=== PATIENT | male | born 1970 | race Caucasian/White ===

== ENCOUNTER → 2019-05-31 | Outpatient (CLI) | payer BC | LOC: COL.CARD 06:33 | DX: R07.89 Other chest pain (principal) ==

== ENCOUNTER → 2020-03-21 | Outpatient (CLI) | payer BC | LOC: COL.RAD 09:48 | DX: K76.0 Fatty (change of) liver, not elsewhere classified (principal); R05 Cough ==

== ENCOUNTER 2021-05-11 21:45 | Inpatient (IN) | payer BC ==
[~2021-05-11] VITALS: Ht 175.3 cm; Wt 102.7 kg
[2021-05-11 22:43] LABS: BASO % 0.2 % (0.0-2.0); GRAN % 81.8 % (42.2-75.2); HEMATOCRIT 43.9 % (42.0-52.0); HEMOGLOBIN 15.3 g/dl (13.5-18.0); LYMPH # 0.6 K/mm3 (1.2-3.4); LYMPH % 12.8 % (20.0-51.0); MEAN CELL VOLUME 91 fl (80.0-100.0); MEAN CORPUSCULAR HEMOGLOBIN 32 pg (27-31); MEAN CORPUSCULAR HGB CONC 35 g/dl (33.0-37.0); MEAN PLATELET VOLUME 9.9 fl (7.4-10.4); MONO # 0.2 K/mm3 (0.1-0.6); PLATELET COUNT 163 K/mm3 (130-400); RED BLOOD COUNT 4.82 M/mm3 (4.20-5.60); REDCELL DISTRIBUTION WIDTH-CV 12.6 % (11.5-14.5)
[2021-05-11 23:03] LABS: ALBUMIN 3.6 gm/dL (3.5-5.0); BILIRUBIN,TOTAL 0.9 mg/dL (0.2-1.2); CREATININE, serum 0.89 mg/dL (0.72-1.25); POTASSIUM 3.4 mmol/L (3.5-4.5); TOTAL PROTEIN 6.7 gm/dL (6.2-8.1)
[2021-05-11 23:08] LABS: TROPONIN-I 0.019 ng/mL (0.00-0.033)
[2021-05-12] VITALS (7 sets, daily range): BP systolic 95–124; BP diastolic 56–75; PULSE 72–91; TEMP 98–100.2
[2021-05-12 00:27] LABS: INR 1.3 (0.8-3.0); PROTHROMBIN TIME 14.1 SECONDS (9.7-12.8)
[2021-05-12 00:40] LABS: C-REACTIVE PROTEIN 9.24 mg/dL (0.00-0.50); MAGNESIUM 1.9 mg/dL (1.6-2.6)
--- NOTE | 2021-05-12 04:09 | NUR ---
Patient arrived medical floor via wheelchair from ER around 02:10 am. Patient A/Ox4. Patient currently on oxygen 3L via NC. Patient denies SOB or dyspnea while at rest. Denies chest pain, headache, or N/V. Tele box in place. Oriented patient to the room. Potassium replaced per JUN. Patient independent in the room. Call light in reach. Will continue to monitor.
[2021-05-12 07:48] LABS: ALBUMIN 3.2 gm/dL (3.5-5.0); BILIRUBIN,TOTAL 0.6 mg/dL (0.2-1.2); CALCIUM 8.1 mg/dL (8.4-10.2); CREATININE, serum 1.01 mg/dL (0.72-1.25); POTASSIUM 4.3 mmol/L (3.5-4.5); TOTAL PROTEIN 6.1 gm/dL (6.2-8.1)
[2021-05-12 08:28] LABS: BASO % 0.2 % (0.0-2.0); GRAN # 3.7 K/mm3 (1.4-6.5); GRAN % 77.1 % (42.2-75.2); HEMATOCRIT 42.4 % (42.0-52.0); HEMOGLOBIN 14.6 g/dl (13.5-18.0); LYMPH # 0.8 K/mm3 (1.2-3.4); LYMPH % 17.5 % (20.0-51.0); MEAN CELL VOLUME 93 fl (80.0-100.0); MEAN CORPUSCULAR HEMOGLOBIN 32 pg (27-31); MEAN CORPUSCULAR HGB CONC 34 g/dl (33.0-37.0); MEAN PLATELET VOLUME 10.5 fl (7.4-10.4); MONO # 0.2 K/mm3 (0.1-0.6); MONO % 4.8 % (1.7-9.3); PLATELET COUNT 177 K/mm3 (130-400); RED BLOOD COUNT 4.56 M/mm3 (4.20-5.60)
--- NOTE | 2021-05-12 10:56 | NUR ---
Bill Distributor contacted patient by phone to discuss discharge planning as he is currently in covid isolation. Patient lives in [place] with his , Eun (ph#[phone]) and three of their children. Patient states he also has three adult children who no longer live in the home. Patient states his primary care physician, Dr. Emery retired recently so they are in the process of finding a new PCP. Patient obtains medications from [facility] with no diffficulties. Patient does not use any DME, but is currently requiring oxygen. SW will continue to monitor. Patient is independent with ADLS and is employed at [employer]. Patient does not have Advance Directives and his , Eun is legal next of kin. Patient plans to return home upon discharge. Discharge Plan: Home, possible home oxygen
[2021-05-12 13:32] LABS: COLLECTION METHOD CLEAN CATCH
[2021-05-12 13:44] LABS: MUCOUS Present (NOT PRESENT); PH 5 (5-8); SQUAMOUS EPITHELIAL 0-2 /hpf (0-10); URINE APPEARANCE Hazy (CLEAR/HAZY); URINE BACTERIA None Seen /hpf (NONE SEEN); URINE BILIRUBIN Negative (NEGATIVE); URINE BLOOD Negative (NEGATIVE); URINE COLOR Yellow (YELLOW); URINE GLUCOSE Negative (NEGATIVE); URINE KETONE Trace (NEGATIVE); URINE LEUKOCYTE ESTERASE Negative (NEGATIVE); URINE NITRATE Negative (NEGATIVE); URINE PROTEIN(semi-quant) 1+ (NEGATIVE); URINE RBC 0-2 /hpf (0-2); URINE UROBILINOGEN >=4.0 (NEGATIVE)
--- NOTE | 2021-05-12 22:00 | NUR ---
Patient resting in bed upon enter the room. Patient currently on 15L oxygen via high flow NC. Patient reports SOB with activities. Patient denies any chest pain or discomfort. Temp 100.2F tonight. PRN Tylenol given. Call light in reach. Will continue to monitor.
[2021-05-13 04:06] VITALS: BP 119/71; PULSE 70; TEMP 97.7
[2021-05-13 06:21] LABS: BASO % 0.1 % (0.0-2.0); GRAN % 85.4 % (42.2-75.2); HEMATOCRIT 42.6 % (42.0-52.0); HEMOGLOBIN 14.4 g/dl (13.5-18.0); LYMPH # 0.7 K/mm3 (1.2-3.4); LYMPH % 9.2 % (20.0-51.0); MEAN CELL VOLUME 93 fl (80.0-100.0); MEAN CORPUSCULAR HEMOGLOBIN 32 pg (27-31); MEAN CORPUSCULAR HGB CONC 34 g/dl (33.0-37.0); MEAN PLATELET VOLUME 10.6 fl (7.4-10.4); MONO # 0.3 K/mm3 (0.1-0.6); MONO % 4.7 % (1.7-9.3); PLATELET COUNT 209 K/mm3 (130-400); RED BLOOD COUNT 4.56 M/mm3 (4.20-5.60); REDCELL DISTRIBUTION WIDTH-CV 12.7 % (11.5-14.5)
[2021-05-13 06:42] LABS: BILIRUBIN,TOTAL 0.6 mg/dL (0.2-1.2); CREATININE, serum 0.79 mg/dL (0.72-1.25); POTASSIUM 3.9 mmol/L (3.5-4.5); TOTAL PROTEIN 6.1 gm/dL (6.2-8.1)
[2021-05-13 08:30] VITALS: BP 112/63; PULSE 73; TEMP 97.7
--- NOTE | 2021-05-13 09:30 | NUR ---
PT ASSESSED. NO COMPLAINSTS OF PAIN OR DYSPNEA. NO SIGNS OR SYMPTOMS OF DISTRESS. CALL LIGHT WITHIN REACH
[2021-05-13 11:54] VITALS: BP 115/59; PULSE 66; TEMP 98.1
[2021-05-13 16:03] VITALS: BP 110/62; PULSE 69; TEMP 98
[2021-05-13 20:00] VITALS: BP 132/66; PULSE 70; TEMP 98.5
--- NOTE | 2021-05-13 21:20 | NUR ---
Patient sitting up in bed and watching TV upon enter the room. Patient denies chest pain and SOB at this time. Patient reports SOB with activities. Patient currently on 15L oxygen via high flow NC. Breathing even and unlabored. No apparent respiratory distress noted. Call light in reach. Will continue to monitor.
[2021-05-13 23:55] VITALS: BP 110/64; PULSE 70; TEMP 97.9
[2021-05-14 03:57] VITALS: BP 104/50; PULSE 66
--- NOTE | 2021-05-14 05:38 | NUR ---
Patient remains on oxygen 15L via high flow NC over the night. VS stable. No acute distress noted.
[2021-05-14 07:18] LABS: BASO % 0.1 % (0.0-2.0); GRAN # 7.2 K/mm3 (1.4-6.5); GRAN % 86.5 % (42.2-75.2); HEMATOCRIT 43.4 % (42.0-52.0); HEMOGLOBIN 14.6 g/dl (13.5-18.0); LYMPH # 0.6 K/mm3 (1.2-3.4); LYMPH % 7.7 % (20.0-51.0); MEAN CELL VOLUME 93 fl (80.0-100.0); MEAN CORPUSCULAR HEMOGLOBIN 31 pg (27-31); MEAN CORPUSCULAR HGB CONC 34 g/dl (33.0-37.0); MEAN PLATELET VOLUME 10.7 fl (7.4-10.4); MONO # 0.4 K/mm3 (0.1-0.6); MONO % 5.3 % (1.7-9.3); PLATELET COUNT 257 K/mm3 (130-400); RED BLOOD COUNT 4.65 M/mm3 (4.20-5.60); REDCELL DISTRIBUTION WIDTH-CV 12.9 % (11.5-14.5)
[2021-05-14 07:28] LABS: ALBUMIN 3.1 gm/dL (3.5-5.0); BILIRUBIN,TOTAL 0.6 mg/dL (0.2-1.2); C-REACTIVE PROTEIN 6.56 mg/dL (0.00-0.50); CALCIUM 8.4 mg/dL (8.4-10.2); CREATININE, serum 0.74 mg/dL (0.72-1.25); POTASSIUM 3.9 mmol/L (3.5-4.5); TOTAL PROTEIN 6.1 gm/dL (6.2-8.1)
[2021-05-14 08:20] VITALS: BP 94/55; PULSE 67; TEMP 98
--- NOTE | 2021-05-14 09:37 | NUR ---
Assessment completed, alert/oriented, vital signs stable, patient stated he feels worse today, oxygen demand increased and he is now on Airvo, lungs are diminished and coarse in the bases, encourged deep breathig exercises and positon changes/ mobility, heart RRR/distal pulses are palapble, he is sitting at the edge of bed, morning meds given and he is eating breakfast, will continue to monitor and he denies needs at this time
[2021-05-14 12:02] VITALS: BP 98/59; PULSE 62; TEMP 98.3
[2021-05-14 17:15] VITALS: BP 118/73; PULSE 67; TEMP 98.1
[2021-05-14 20:01] VITALS: BP 116/69; PULSE 63; TEMP 98
--- NOTE | 2021-05-14 22:06 | NUR ---
Patient is sitted in bed, alert and oriented x 4, reports he does not want to be in bed because of the SOB. Airvo 45L 90%FiO2. Telemetry in place, NSR. Assessment completed. No further needs at this time. Call light within reach.
[2021-05-14 23:49] VITALS: BP 110/56; PULSE 77; TEMP 97.8
[2021-05-15 04:23] VITALS: BP 113/65; PULSE 64; TEMP 98
--- NOTE | 2021-05-15 05:55 | NUR ---
Patient has been stable along the night. Continues with airvo at 45L 90 %. No fever, reports some diarrhea. Repor will be given to day RN.
[2021-05-15 06:22] LABS: HEMATOCRIT 42.4 % (42.0-52.0); HEMOGLOBIN 14.2 g/dl (13.5-18.0); MEAN CELL VOLUME 95 fl (80.0-100.0); MEAN CORPUSCULAR HEMOGLOBIN 32 pg (27-31); MEAN CORPUSCULAR HGB CONC 34 g/dl (33.0-37.0); MEAN PLATELET VOLUME 10.3 fl (7.4-10.4); PLATELET COUNT 289 K/mm3 (130-400); RED BLOOD COUNT 4.45 M/mm3 (4.20-5.60); REDCELL DISTRIBUTION WIDTH-CV 12.8 % (11.5-14.5)
[2021-05-15 06:43] LABS: BILIRUBIN,TOTAL 0.5 mg/dL (0.2-1.2); CALCIUM 8.3 mg/dL (8.4-10.2); CREATININE, serum 0.73 mg/dL (0.72-1.25); POTASSIUM 3.8 mmol/L (3.5-4.5)
[2021-05-15 07:35] LABS: BAND 3 % (0-10); EOSINOPHIL 1 % (0-4); LYMPHOCYTE 6 % (20.0-51.0); NEUTROPHILS 85 % (42.0-75.2); PLATELET ESTIMATE NORMAL (NORMAL)
[2021-05-15 08:30] VITALS: BP 111/68; PULSE 72; TEMP 97.6
[2021-05-15 12:16] VITALS: BP 116/66; PULSE 58; TEMP 98.1
--- NOTE | 2021-05-15 13:00 | NUR ---
The patient remains on high flow oxygen at 50 liters. SW to continue to monitor.
[2021-05-15 15:20] VITALS: BP 128/65; PULSE 73; TEMP 98.9
[2021-05-15 20:27] VITALS: BP 111/60; PULSE 66; TEMP 98.1
--- NOTE | 2021-05-15 21:30 | NUR ---
Patient is resting in bed, alert and oriented x 4, states feeling the same as yesterday. On airvo 50L 90%FiO2. Assessment completed. No other needs at this time. Call light within reach.
--- NOTE | 2021-05-15 22:29 | NUR ---
Pt reports cough but not so bad to required cough medication. Still with diarrhea.
[2021-05-15 23:56] VITALS: BP 115/51; PULSE 61; TEMP 98.4
[2021-05-16 04:11] VITALS: BP 105/56; PULSE 60; TEMP 98.1
[2021-05-16 05:34] LABS: HEMOGLOBIN 14.7 g/dl (13.5-18.0); MEAN CELL VOLUME 94 fl (80.0-100.0); MEAN CORPUSCULAR HEMOGLOBIN 31 pg (27-31); MEAN CORPUSCULAR HGB CONC 33 g/dl (33.0-37.0); PLATELET COUNT 318 K/mm3 (130-400); REDCELL DISTRIBUTION WIDTH-CV 12.8 % (11.5-14.5)
[2021-05-16 05:54] LABS: BILIRUBIN,TOTAL 0.6 mg/dL (0.2-1.2); CALCIUM 8.4 mg/dL (8.4-10.2); CREATININE, serum 0.74 mg/dL (0.72-1.25); POTASSIUM 4.2 mmol/L (3.5-4.5); TOTAL PROTEIN 5.7 gm/dL (6.2-8.1)
--- NOTE | 2021-05-16 06:13 | NUR ---
Patient has been stable along the night. He continues with airvo at 50L 90%. Still with cough and diarrhea. Report will be given to day RN.
[2021-05-16 06:52] LABS: BAND 1 % (0-10); LYMPHOCYTE 10 % (20.0-51.0); METAMYELOCYTE 1 % (0-0); NEUTROPHILS 84 % (42.0-75.2); PLATELET ESTIMATE NORMAL (NORMAL)
[2021-05-16 08:46] VITALS: BP 104/64; PULSE 70; TEMP 99
--- NOTE | 2021-05-16 10:20 | NUR ---
The patient remains on high flow oxygen at 50 liters. SW contacted the patient to follow up. The patient reports that he is doing alright. He still plans on returning home with his upon discharge. SW to continue to monitor.
[2021-05-16 12:29] VITALS: BP 102/67; PULSE 65; TEMP 97.6
[2021-05-16 16:14] VITALS: BP 104/71; PULSE 67; TEMP 98.4
--- NOTE | 2021-05-16 20:30 | NUR ---
Patient is sitting in bed, alert and oriented x 4, VSS. On airvo 55L 90%. Continues with cough and diarrhea. States he feels no improvement or deterioration. Day shift reported he was struggling with O2 levels when having meals. SOB with activity. Assessment completed. No further needs at this time. Call light within reach.
[2021-05-16 20:36] VITALS: BP 111/67; PULSE 66; TEMP 97.9
[2021-05-17 00:38] VITALS: BP 102/50; PULSE 53; TEMP 98
[2021-05-17 05:00] VITALS: BP 101/62; PULSE 66; TEMP 98.6
--- NOTE | 2021-05-17 06:19 | NUR ---
Pt has had a calm night. Continues with airvo at 55L and 90%. Report will be given to day RN.
[2021-05-17 06:54] LABS: HEMATOCRIT 46.2 % (42.0-52.0); HEMOGLOBIN 15.6 g/dl (13.5-18.0); MEAN CELL VOLUME 94 fl (80.0-100.0); MEAN CORPUSCULAR HEMOGLOBIN 32 pg (27-31); MEAN CORPUSCULAR HGB CONC 34 g/dl (33.0-37.0); MEAN PLATELET VOLUME 10.4 fl (7.4-10.4); PLATELET COUNT 335 K/mm3 (130-400); RED BLOOD COUNT 4.92 M/mm3 (4.20-5.60); REDCELL DISTRIBUTION WIDTH-CV 12.8 % (11.5-14.5)
[2021-05-17 07:29] LABS: ALBUMIN 3.1 gm/dL (3.5-5.0); CALCIUM 8.4 mg/dL (8.4-10.2); CREATININE, serum 0.81 mg/dL (0.72-1.25); MAGNESIUM 2.2 mg/dL (1.6-2.6); PHOSPHOROUS 4.2 mg/dL (2.3-4.7); POTASSIUM 3.9 mmol/L (3.5-4.5)
[2021-05-17 08:01] LABS: LYMPHOCYTE 7 % (20.0-51.0); NEUTROPHILS 92 % (42.0-75.2); PLATELET ESTIMATE NORMAL (NORMAL)
[2021-05-17 09:00] VITALS: BP 104/66; PULSE 61; TEMP 97.6
--- NOTE | 2021-05-17 10:56 | NUR ---
PT SITTING ON SIDE OF BED EATING BREAKFAST. PT INDPENDENT IN ROOM. PT REQUIRING 60L AIRVO PNC. NO OTHER NEEDS AT THIS TIME.
[2021-05-17 11:29] VITALS: BP 98/61; PULSE 59; TEMP 98.5
--- NOTE | 2021-05-17 12:29 | NUR ---
Correct time for PICC placement is 1052 not 1152 as recorded.
[2021-05-17 17:12] VITALS: BP 119/69; PULSE 59; TEMP 98.7
[2021-05-17 21:53] VITALS: BP 112/64; PULSE 80; TEMP 98.1
[2021-05-18] VITALS (311 sets, daily range): BP systolic 103–124; BP diastolic 53–79; PULSE 60–74; TEMP 97.8–98.5; O2SAT 79–98
--- NOTE | 2021-05-18 05:56 | NUR ---
ASSESSMENT COMPLETE FOR THIS SHIFT. PT ASLEEP IN BED. PT COMPLAINED OF A HEADACHE ABOUT 2300HRS. PT GIVEN TYLENOL FOR PAIN. HEADACHE RESOLVED. PT DENIES PALPITATIONS, SOB, N,V,D OR DIZZINESS. PT EXPRESSED NO OTHER NEEDS AT THIS TIME. CALL LIGHT WITHIN REACH.
[2021-05-18 06:13] LABS: HEMATOCRIT 47.9 % (42.0-52.0); HEMOGLOBIN 15.9 g/dl (13.5-18.0); MEAN CELL VOLUME 95 fl (80.0-100.0); MEAN CORPUSCULAR HEMOGLOBIN 32 pg (27-31); MEAN CORPUSCULAR HGB CONC 33 g/dl (33.0-37.0); MEAN PLATELET VOLUME 10.4 fl (7.4-10.4); PLATELET COUNT 294 K/mm3 (130-400); RED BLOOD COUNT 5.05 M/mm3 (4.20-5.60); REDCELL DISTRIBUTION WIDTH-CV 12.9 % (11.5-14.5)
[2021-05-18 06:36] LABS: ALBUMIN 3.1 gm/dL (3.5-5.0); CALCIUM 8.4 mg/dL (8.4-10.2); CREATININE, serum 0.78 mg/dL (0.72-1.25); MAGNESIUM 2.3 mg/dL (1.6-2.6)
[2021-05-18 07:33] LABS: LYMPHOCYTE 8 % (20.0-51.0); NEUTROPHILS 86 % (42.0-75.2); NUCLEATED RED BLOOD CELL 2 (0-6); PLATELET ESTIMATE NORMAL (NORMAL)
--- NOTE | 2021-05-18 08:00 | NUR ---
Shift assessment complete. Pt sitting up in bed, airvo in place at 60 L 95% O2. Pt reports coughing fits when up to restroom causing increased SOA, resolve at rest. Breathing appears mildly labored at this time. Lung sounds diminished all byrd. Heart RRR. A&Ox4. Pt reports difficulty eating due to SOA. RT at bedside and switched pt to BIPAP at 75%. Encourage pt to use BSC and urinal vs. up to restroom. Pt denies needs at this time. Call light in reach.
--- NOTE | 2021-05-18 10:52 | NUR ---
Report called to ICU nurse Naomi. RODRIGUEZ at bedside drawing ABG at this time.
[2021-05-18 11:01] LABS: ARTERIAL BLD GAS O2 SATURATION 94.7 % (92-100); ARTERIAL BLD GAS TCO2 CT 19.8; ARTERIAL BLOOD GAS BASE EXCESS -3.2 (-2-2); ARTERIAL BLOOD GAS HCO3 18.9 meq/L (22-26); ARTERIAL BLOOD GAS PCO2 27.8 mmHg (35-45); ARTERIAL BLOOD GAS PO2 70.8 mmHg (80-100); ARTERIAL BLOOD GAS pH 7.45 (7.35-7.45)
--- NOTE | 2021-05-18 11:55 | NUR ---
Pt taken down to CT and then to ICU bed 1 following by this RN and RT. Assisted JOHANA Morelos in settling pt into room. All belongings with pt.
--- NOTE | 2021-05-18 19:15 | NUR ---
Received report from JOHANA Morelos.
--- NOTE | 2021-05-18 21:00 | NUR ---
Patient resting quietly in bed. Continues to wear CPAP at 75% FiO2, tolerating well. All vitals within normal limits. Denies any pain or discomfort. Patient assited with use of urinal and sips of water. No fluids or medications infusing at this time.
[2021-05-19] VITALS (690 sets, daily range): BP systolic 104–127; BP diastolic 64–82; PULSE 64–85; TEMP 97.2–98.2; O2SAT 62–99
[2021-05-19 04:56] LABS: HEMATOCRIT 50.9 % (42.0-52.0); MEAN CELL VOLUME 94 fl (80.0-100.0); MEAN CORPUSCULAR HEMOGLOBIN 31 pg (27-31); MEAN CORPUSCULAR HGB CONC 33 g/dl (33.0-37.0); PLATELET COUNT 299 K/mm3 (130-400); RED BLOOD COUNT 5.43 M/mm3 (4.20-5.60); REDCELL DISTRIBUTION WIDTH-CV 13.2 % (11.5-14.5)
[2021-05-19 05:22] LABS: ARTERIAL BLD GAS O2 SATURATION 89.6 % (92-100); ARTERIAL BLD GAS TCO2 CT 20.2; ARTERIAL BLOOD GAS BASE EXCESS -3.2 (-2-2); ARTERIAL BLOOD GAS HCO3 19.3 meq/L (22-26); ARTERIAL BLOOD GAS PCO2 29.4 mmHg (35-45); ARTERIAL BLOOD GAS PO2 56.6 mmHg (80-100); ARTERIAL BLOOD GAS pH 7.44 (7.35-7.45)
[2021-05-19 05:37] LABS: ALBUMIN 3.3 gm/dL (3.5-5.0); CALCIUM 8.9 mg/dL (8.4-10.2); CREATININE, serum 0.74 mg/dL (0.72-1.25); MAGNESIUM 2.4 mg/dL (1.6-2.6); PHOSPHOROUS 4.8 mg/dL (2.3-4.7)
[2021-05-19 06:10] LABS: BAND 3 % (0-10); LYMPHOCYTE 8 % (20.0-51.0); METAMYELOCYTE 1 % (0-0); NEUTROPHILS 85 % (42.0-75.2)
--- NOTE | 2021-05-19 07:00 | NUR ---
RECEIVED REPORT FROM JOHANA KOTHARI. PT SLEEPING ON CPAP OF 75%. VSS. CALL LIGHT AND URINAL WITHIN REACH.
--- NOTE | 2021-05-19 19:05 | NUR ---
Received report from JOHANA Perez.
--- NOTE | 2021-05-19 20:00 | NUR ---
Patient resting quietly in bed. Wearing Airvo at 60L 90% at this time with saturations mid to high 80s. Patient is agreeable to switching over to CPAP. Sats immediately improve to low-mid 90s. All other vitals within normal limits. Patient denies any pain or discomfort.
[2021-05-20] VITALS (439 sets, daily range): BP systolic 92–134; BP diastolic 49–85; PULSE 63–86; TEMP 97.6–98.6; O2SAT 60–99
[2021-05-20 05:53] LABS: ARTERIAL BLD GAS O2 SATURATION 92.8 % (92-100); ARTERIAL BLD GAS TCO2 CT 20.8; ARTERIAL BLOOD GAS BASE EXCESS -2.2 (-2-2); ARTERIAL BLOOD GAS HCO3 19.9 meq/L (22-26); ARTERIAL BLOOD GAS PCO2 28.6 mmHg (35-45); ARTERIAL BLOOD GAS PO2 64.4 mmHg (80-100); ARTERIAL BLOOD GAS pH 7.46 (7.35-7.45)
[2021-05-20 05:57] LABS: HEMATOCRIT 50.2 % (42.0-52.0); MEAN CELL VOLUME 93 fl (80.0-100.0); MEAN CORPUSCULAR HEMOGLOBIN 32 pg (27-31); MEAN CORPUSCULAR HGB CONC 34 g/dl (33.0-37.0); MEAN PLATELET VOLUME 10.1 fl (7.4-10.4); PLATELET COUNT 258 K/mm3 (130-400)
[2021-05-20 06:21] LABS: BAND 3 % (0-10); LYMPHOCYTE 6 % (20.0-51.0); METAMYELOCYTE 1 % (0-0); NEUTROPHILS 86 % (42.0-75.2); PLATELET ESTIMATE NORMAL (NORMAL)
[2021-05-20 06:55] LABS: ALBUMIN 3.2 gm/dL (3.5-5.0); CALCIUM 8.4 mg/dL (8.4-10.2); CREATININE, serum 0.79 mg/dL (0.72-1.25); MAGNESIUM 2.5 mg/dL (1.6-2.6); PHOSPHOROUS 4.1 mg/dL (2.3-4.7)
--- NOTE | 2021-05-20 07:00 | NUR ---
RECEIVED REPORT FROM JOHANA KOTHARI. PT SLEEPING ON CPAP MASK 75%. VSS. CALL LIGHT AND URINAL WITHIN REACH.
--- NOTE | 2021-05-20 07:37 | NUR ---
Report given to JOHANA Perez.
--- NOTE | 2021-05-20 18:00 | NUR ---
REPORT CALLED TO FRANCISCO RN ON MEDICAL. PT TO TRANSFER TO [facility] VIA ON 15L OM. ALL PERSONAL BELONGINGS SENT WITH PT. DINNER TRAY ALSO SENT WITH PT.
--- NOTE | 2021-05-20 18:20 | NUR ---
PT ADMITTED TO UNIT AT THIS TIME. ORIENTED TO ROOM. WILL PASS ALONG REPORT TO ONCOMING RN.
--- NOTE | 2021-05-20 21:00 | NUR ---
Initial shift assessment done- denies pain, states SOB with any exertion, on airvo now 50L, 85% sats 90-91%, will go back on Bipap for the night. Alert,oriented, did give some crackers as a snack- no other requests, PICC to GONZÁLEZ- flushes without issues.
[2021-05-21] VITALS (317 sets, daily range): BP systolic 97–126; BP diastolic 43–77; PULSE 60–75; TEMP 97.6–98.5; O2SAT 83–100
[2021-05-21 05:38] LABS: ARTERIAL BLD GAS O2 SATURATION 90.6 % (92-100); ARTERIAL BLD GAS TCO2 CT 22.5; ARTERIAL BLOOD GAS BASE EXCESS -0.9 (-2-2); ARTERIAL BLOOD GAS HCO3 21.6 meq/L (22-26); ARTERIAL BLOOD GAS PCO2 30.7 mmHg (35-45); ARTERIAL BLOOD GAS PO2 57.4 mmHg (80-100); ARTERIAL BLOOD GAS pH 7.47 (7.35-7.45)
--- NOTE | 2021-05-21 06:07 | NUR ---
Has been sleeping well tonight-- on the Bipap all night 75% ,, o2 sats 93%. No requests.
--- NOTE | 2021-05-21 08:00 | NUR ---
ASSESSED THE PATIENT WHO WAS ON CPAP AT THE TIME. O2 SATURATIONS WERE AT 84% AND JUMPING TO 86% AT TIMES. CONTACTED RT WHO ADJUSTED HIM TO BIPAP WITH SETTINGS OF 18/15 AND 80%. THE PATIENT HAS BEEN UNABLE TO TAKE HIS MASK OFF TO EAT.
[2021-05-21 08:35] LABS: CALCIUM 8.2 mg/dL (8.4-10.2); CREATININE, serum 0.77 mg/dL (0.72-1.25); MAGNESIUM 2.4 mg/dL (1.6-2.6); PHOSPHOROUS 3.7 mg/dL (2.3-4.7); POTASSIUM 3.9 mmol/L (3.5-4.5)
--- NOTE | 2021-05-21 09:32 | NUR ---
PLACED PT IN BIPAP MODE 80% SPO2 91%
--- NOTE | 2021-05-21 11:25 | NUR ---
PROVIDER VISITED WITH THE PATIENT, AND THEY HAVE DECIDED TO TRANSFER HIM BACK DOWN TO THE ICU AT THIS TIME. NO FURTHER CONCERNS.
[2021-05-21 12:02] LABS: HEMATOCRIT 48.5 % (42.0-52.0); HEMOGLOBIN 16.3 g/dl (13.5-18.0); MEAN CELL VOLUME 96 fl (80.0-100.0); MEAN CORPUSCULAR HEMOGLOBIN 32 pg (27-31); MEAN CORPUSCULAR HGB CONC 34 g/dl (33.0-37.0); MEAN PLATELET VOLUME 10.4 fl (7.4-10.4); PLATELET COUNT 206 K/mm3 (130-400); RED BLOOD COUNT 5.05 M/mm3 (4.20-5.60); REDCELL DISTRIBUTION WIDTH-CV 13.3 % (11.5-14.5)
--- NOTE | 2021-05-21 12:27 | NUR ---
'S NUMBER IS [phone]
[2021-05-21 12:30] LABS: BAND 5 % (0-10); EOSINOPHIL 1 % (0-4); LYMPHOCYTE 1 % (20.0-51.0); NEUTROPHILS 91 % (42.0-75.2); PLATELET ESTIMATE NORMAL (NORMAL)
[2021-05-21 12:59] LABS: ARTERIAL BLD GAS O2 SATURATION 94.2 % (92-100); ARTERIAL BLD GAS TCO2 CT 20.6; ARTERIAL BLOOD GAS BASE EXCESS -1.1 (-2-2); ARTERIAL BLOOD GAS HCO3 19.8 meq/L (22-26); ARTERIAL BLOOD GAS PCO2 25.6 mmHg (35-45); ARTERIAL BLOOD GAS PO2 62.9 mmHg (80-100); ARTERIAL BLOOD GAS pH 7.51 (7.35-7.45)
--- NOTE | 2021-05-21 13:00 | NUR ---
UPON ASSESSMENT OF THIS PATIENT, HE IS 94-95% ON BIPAP AT 80%. AT THIS TIME THE PATIENT IS DISPLAYING NECK PAIN, UPON PALPATION OF THIS AREA THERE IS SLIGHT CREPITOUS. THE PATIEN'T DOES STATE THAT IT HURTS. TRANSFER TO THE ICU WILL HAPPEN AT THIS TIME.
--- NOTE | 2021-05-21 14:00 | NUR ---
Pt arrived to ICU 1. Pt moved from medical to ICU bed without difficulty. BiPAP in place at 80% FiO2. FiO2 titrated to 100% per MD Kelvin. Small amount of subcutaneous emphysemia noted in right upper chest and neck. Pt's Eun called on speaker using pt's cell phone - update provided - Eun wishes for an update from a provider - MD Sofi made aware. RT aware of ABG scheduled for 1700.
--- NOTE | 2021-05-21 15:30 | NUR ---
Respiratory Therapy notified of 1700 ABG
[2021-05-21 19:09] LABS: ARTERIAL BLD GAS O2 SATURATION 97.8 % (92-100); ARTERIAL BLD GAS TCO2 CT 18.6; ARTERIAL BLOOD GAS BASE EXCESS -1.2 (-2-2); ARTERIAL BLOOD GAS PCO2 20.6 mmHg (35-45); ARTERIAL BLOOD GAS PO2 93.3 mmHg (80-100); ARTERIAL BLOOD GAS pH 7.56 (7.35-7.45)
--- NOTE | 2021-05-21 20:00 | NUR ---
PT ASSESSMENT COMPLETE. PT SITTING UP IN BED, ON BIPAP. TOLERATING WELL. DENIES SOA OR DISTRESS. RR IS ELEVATED IN THE 30'S, PULSE OX 99%. BLOOD GASES SHOWN TO DR. NASH, NO ORDERS OR CHANGE TO POC AT THIS TIME. NOTED TRAPPED AIR OR SIMILAR SWELLING TO RIGHT SIDE NECK. PT REPORTS SEEMS BETTER THAN PREVIOUSLY TODAY. WILL CONTINUE TO MONITOR.
--- NOTE | 2021-05-21 22:30 | NUR ---
XRAY COMPLETED AT THIS TIME TO EVALUATE AIR/SWELLING RIGHT SIDE OF NECK. WILL FOLLOW.
--- NOTE | 2021-05-21 23:02 | NUR ---
RADIOLOGIST CALLED TO REPORT PNEUMOMEDIASTIUM, NO PNEUMOTHORAX. REPORTED TO BRITTNI TOSCANO. DISCUSSED WITH PT THAT WE WILL CONTINUE TO MONITOR. OFFERED ANXIETY MEDICATION NEEDED, STATES IS DOING OK. TRYING TO SLEEP NOW.
[2021-05-22] VITALS (718 sets, daily range): BP systolic 94–120; BP diastolic 71–87; PULSE 64–74; TEMP 97–98.5; O2SAT 74–100
[2021-05-22 04:37] LABS: ARTERIAL BLD GAS TCO2 CT 27.1; ARTERIAL BLOOD GAS BASE EXCESS 3.1 (-2-2); ARTERIAL BLOOD GAS PCO2 35.1 mmHg (35-45); ARTERIAL BLOOD GAS pH 7.49 (7.35-7.45)
[2021-05-22 04:50] LABS: HEMATOCRIT 49.2 % (42.0-52.0); HEMOGLOBIN 16.4 g/dl (13.5-18.0); MEAN CELL VOLUME 96 fl (80.0-100.0); MEAN CORPUSCULAR HEMOGLOBIN 32 pg (27-31); MEAN CORPUSCULAR HGB CONC 33 g/dl (33.0-37.0); MEAN PLATELET VOLUME 10.5 fl (7.4-10.4); PLATELET COUNT 182 K/mm3 (130-400); RED BLOOD COUNT 5.12 M/mm3 (4.20-5.60); REDCELL DISTRIBUTION WIDTH-CV 13.3 % (11.5-14.5)
[2021-05-22 05:07] LABS: CALCIUM 8.2 mg/dL (8.4-10.2); CREATININE, serum 0.8 mg/dL (0.72-1.25); POTASSIUM 4.1 mmol/L (3.5-4.5)
[2021-05-22 06:10] LABS: BAND 1 % (0-10); BASOPHIL 1 % (0-2); EOSINOPHIL 1 % (0-4); LYMPHOCYTE 3 % (20.0-51.0); NEUTROPHILS 90 % (42.0-75.2)
[2021-05-22 06:11] LABS: BURR CELLS 1+; PLATELET ESTIMATE NORMAL (NORMAL)
[2021-05-22 06:12] LABS: TEAR DROP CELLS 1+
--- NOTE | 2021-05-22 10:25 | NUR ---
The patient was transferred down to the ICU. He remains on a bipap. SW to continue to monitor.
--- NOTE | 2021-05-22 11:10 | NUR ---
PT is awake and calm this am. PTs only complaint is of dry mouth. Oral moisturizer is given and patient is thankful. PT appears to be comfortable on Bipap. PT states he does not want to be intubated, but will do what he needs.
[2021-05-23] VITALS (541 sets, daily range): BP systolic 92–108; BP diastolic 59–73; PULSE 66–84; TEMP 97.6–98.4; O2SAT 79–100
[2021-05-23 04:10] LABS: ARTERIAL BLD GAS O2 SATURATION 97.5 % (92-100); ARTERIAL BLOOD GAS BASE EXCESS -2.3 (-2-2); ARTERIAL BLOOD GAS PO2 96.1 mmHg (80-100); ARTERIAL BLOOD GAS pH 7.42 (7.35-7.45)
[2021-05-23 05:45] LABS: BASO % 0.2 % (0.0-2.0); EOS # 0.2 K/mm3 (0.0-0.7); EOS % 1.6 % (0.0-4.0); GRAN # 10.7 K/mm3 (1.4-6.5); GRAN % 88.3 % (42.2-75.2); HEMATOCRIT 47.6 % (42.0-52.0); HEMOGLOBIN 15.7 g/dl (13.5-18.0); LYMPH # 0.6 K/mm3 (1.2-3.4); LYMPH % 4.6 % (20.0-51.0); MEAN CELL VOLUME 96 fl (80.0-100.0); MEAN CORPUSCULAR HEMOGLOBIN 32 pg (27-31); MEAN CORPUSCULAR HGB CONC 33 g/dl (33.0-37.0); MEAN PLATELET VOLUME 10.6 fl (7.4-10.4); MONO # 0.5 K/mm3 (0.1-0.6); PLATELET COUNT 146 K/mm3 (130-400); RED BLOOD COUNT 4.98 M/mm3 (4.20-5.60); REDCELL DISTRIBUTION WIDTH-CV 13.2 % (11.5-14.5)
[2021-05-23 06:01] LABS: CALCIUM 8.2 mg/dL (8.4-10.2); CREATININE, serum 0.76 mg/dL (0.72-1.25); POTASSIUM 3.9 mmol/L (3.5-4.5)
--- NOTE | 2021-05-23 09:20 | NUR ---
PT STATES THAT HE IS FEELING BETTER THAN HE WAS YESTERDAY. STATES HE IS TRYING TO REMIND HIMSELF TO TAKE SLOW DEEP BREATHES. DENIES PAIN AND OFFERS NO COMPLAINTS.
--- NOTE | 2021-05-23 09:22 | NUR ---
patient was placed on airvo at 60L, 90% to eat breakfast. patient saturations have dropped to 88% but patient is showing no distress and feels comfortable just "tired". Patient will be placed back on bipap and given breaks in between as long as he can tolerate Airvo.
--- NOTE | 2021-05-23 13:56 | NUR ---
PT RESTING COMFORTABLY AT THIS TIME. WAS ABLE TO EAT 90% OF LUNCH. WEARS AIRVO WITH SPO2 95%. NO S/S DISCOMFORT.
--- NOTE | 2021-05-23 16:20 | NUR ---
REPORT RECEIVED FROM JOHANA HEADLEY. PT ON BIPAP AT 90% AT THIS TIME. PICC TO RIGHT UPPER ARM. NO MEDICATIONS INFUSING AT THIS TIME. PT RESTING COMFORTABLY. OFFERS NO COMPLAINTS. VITAL SIGNS STABLE.
[2021-05-24] VITALS (441 sets, daily range): BP systolic 91–109; BP diastolic 62–76; PULSE 63–86; TEMP 97.8–98.2; O2SAT 81–98
[2021-05-24 05:26] LABS: HEMATOCRIT 47.5 % (42.0-52.0); HEMOGLOBIN 15.9 g/dl (13.5-18.0); MEAN CELL VOLUME 96 fl (80.0-100.0); MEAN CORPUSCULAR HEMOGLOBIN 32 pg (27-31); MEAN CORPUSCULAR HGB CONC 34 g/dl (33.0-37.0); MEAN PLATELET VOLUME 11.4 fl (7.4-10.4); PLATELET COUNT 134 K/mm3 (130-400); RED BLOOD COUNT 4.97 M/mm3 (4.20-5.60); REDCELL DISTRIBUTION WIDTH-CV 13.1 % (11.5-14.5)
[2021-05-24 05:57] LABS: CALCIUM 8.5 mg/dL (8.4-10.2); CREATININE, serum 0.77 mg/dL (0.72-1.25); POTASSIUM 3.9 mmol/L (3.5-4.5)
[2021-05-24 06:02] LABS: PLATELET ESTIMATE NORMAL (NORMAL)
[2021-05-24 06:17] LABS: BAND 1 % (0-10); LYMPHOCYTE 4 % (20.0-51.0); NEUTROPHILS 91 % (42.0-75.2)
[2021-05-24 06:50] LABS: ARTERIAL BLD GAS O2 SATURATION 94.4 % (92-100); ARTERIAL BLD GAS TCO2 CT 22.7; ARTERIAL BLOOD GAS HCO3 21.7 meq/L (22-26); ARTERIAL BLOOD GAS PCO2 34.5 mmHg (35-45); ARTERIAL BLOOD GAS PO2 71.1 mmHg (80-100); ARTERIAL BLOOD GAS pH 7.42 (7.35-7.45)
--- NOTE | 2021-05-24 09:23 | NUR ---
SHIFT REPORT RECEIVED FROM JOHANA HEADLEY. PT REMAINED ON BIPAP MOST OF NIGHT AND WAS ABLE TO SLEEP BETWEEN DISTURBANCES. PICC LINE IN PLACE TO RIGHT UPPER ARM. NO MEDICATIONS INFUSING AT THIS TIME. PT WEARS BIPAP AT 70% FIO2 AND APPEARS TO BE RESTING COMFORTABLY AT THIS TIME. NO S/S DISCOMFORT. VITAL SIGNS STABLE.
[2021-05-24 10:55] LABS: ARTERIAL BLD GAS O2 SATURATION 92.3 % (92-100); ARTERIAL BLOOD GAS BASE EXCESS 0.1 (-2-2); ARTERIAL BLOOD GAS HCO3 22.2 meq/L (22-26); ARTERIAL BLOOD GAS PCO2 30.4 mmHg (35-45); ARTERIAL BLOOD GAS PO2 60.1 mmHg (80-100); ARTERIAL BLOOD GAS pH 7.48 (7.35-7.45)
--- NOTE | 2021-05-24 19:15 | NUR ---
Received report from JOHANA Raman.
--- NOTE | 2021-05-24 21:00 | NUR ---
Patient resting quietly in bed watching television. Wearing AirVo at this time receiving 60L, 90% FiO2, tolerating well. Patient denies any pain or discomfort. All vitals within normal limits.
[2021-05-25] VITALS (489 sets, daily range): BP systolic 71–116; BP diastolic 48–70; PULSE 66–89; TEMP 97.7–98.6; O2SAT 67–100
--- NOTE | 2021-05-25 00:30 | NUR ---
Patient switched to BiPap at this time, receiving / with 75% FiO2. PRN ativan administered per patient's request. Tolerating BiPap well.
[2021-05-25 05:23] LABS: ARTERIAL BLD GAS O2 SATURATION 94.1 % (92-100); ARTERIAL BLD GAS TCO2 CT 23.5; ARTERIAL BLOOD GAS BASE EXCESS -1.1 (-2-2); ARTERIAL BLOOD GAS HCO3 22.4 meq/L (22-26); ARTERIAL BLOOD GAS PCO2 34.6 mmHg (35-45); ARTERIAL BLOOD GAS PO2 67.2 mmHg (80-100); ARTERIAL BLOOD GAS pH 7.43 (7.35-7.45)
[2021-05-25 05:52] LABS: HEMATOCRIT 47.2 % (42.0-52.0); HEMOGLOBIN 15.9 g/dl (13.5-18.0); MEAN CELL VOLUME 94 fl (80.0-100.0); MEAN CORPUSCULAR HEMOGLOBIN 32 pg (27-31); MEAN CORPUSCULAR HGB CONC 34 g/dl (33.0-37.0); MEAN PLATELET VOLUME 11.3 fl (7.4-10.4); PLATELET COUNT 116 K/mm3 (130-400); RED BLOOD COUNT 5.01 M/mm3 (4.20-5.60); REDCELL DISTRIBUTION WIDTH-CV 13.1 % (11.5-14.5)
[2021-05-25 06:04] LABS: CALCIUM 8.4 mg/dL (8.4-10.2); CREATININE, serum 0.73 mg/dL (0.72-1.25); POTASSIUM 3.7 mmol/L (3.5-4.5)
[2021-05-25 07:22] LABS: BAND 4 % (0-10); LYMPHOCYTE 4 % (20.0-51.0); NEUTROPHILS 85 % (42.0-75.2); PLATELET ESTIMATE DECREASED (NORMAL)
--- NOTE | 2021-05-25 19:03 | NUR ---
1739- PATIENT ASKED TO SIT ON COMMODE TO HAVE A BM. PATIENT MOVED TO COMMODE WITH BIPAP ON. DURING BM PATIENT BEGAN PULLING BIPAP MASK OFF AWAY FROM FACE. 1744- PATIENTS COLOR TURNED PALE AND LIPS WERE BLUE. PATIENT TOOK MASK OFF COMPLETELY. O2SATS 70%. RN PLACED AIRVO ON AND PATEINT ACCEPTED IT. PATIENT 02 SATS SLOWLY RETURNED TO 80S. RT NOTIFIED. 1749- PATEINT ALLWOED RN TO PUT BIPAP MASK BACK ON. PATIENT CALMED AND RESPIRATIONS SLOWED. COLOR DID NOT IMPROVE. O2 SATURATION REMAINED IN 80S. DR. NASH NOTIFIED. DECISION OF INTUBATION MADE. RT BED SIDE 1811 1813- TIME OUT PERFORMED 1814- PROPOFOL AND SUCCS SHABBIR MINE ADMINISTRATOR SUPERVISOR 1815- ETT PLACED 8.0 TUBE 25 AT TEETH. BREATH SOUNDS AUSCULTATED THROUGH OUT OG PLACED XRAY TO CHECK PLACEMENT.
[2021-05-25 21:08] LABS: ARTERIAL BLD GAS O2 SATURATION 98.5 % (92-100); ARTERIAL BLD GAS TCO2 CT 24.9; ARTERIAL BLOOD GAS BASE EXCESS -1.8 (-2-2); ARTERIAL BLOOD GAS HCO3 23.6 meq/L (22-26); ARTERIAL BLOOD GAS PCO2 42.5 mmHg (35-45); ARTERIAL BLOOD GAS pH 7.36 (7.35-7.45)
[2021-05-25 21:10] LABS: ARTERIAL BLOOD GAS PO2 132.6 mmHg (80-100)
[2021-05-26] VITALS (775 sets, daily range): BP systolic 72–133; BP diastolic 54–97; PULSE 49–97; TEMP 34.5–37.2; O2SAT 82–100
[2021-05-26 04:48] LABS: BASO % 0.2 % (0.0-2.0); EOS # 0.1 K/mm3 (0.0-0.7); EOS % 0.5 % (0.0-4.0); GRAN # 13.6 K/mm3 (1.4-6.5); GRAN % 88.2 % (42.2-75.2); HEMATOCRIT 46.5 % (42.0-52.0); HEMOGLOBIN 15.9 g/dl (13.5-18.0); LYMPH # 0.7 K/mm3 (1.2-3.4); LYMPH % 4.8 % (20.0-51.0); MEAN CELL VOLUME 95 fl (80.0-100.0); MEAN CORPUSCULAR HEMOGLOBIN 33 pg (27-31); MEAN CORPUSCULAR HGB CONC 34 g/dl (33.0-37.0); MEAN PLATELET VOLUME 11.3 fl (7.4-10.4); MONO # 0.8 K/mm3 (0.1-0.6); MONO % 5.2 % (1.7-9.3); PLATELET COUNT 106 K/mm3 (130-400); RED BLOOD COUNT 4.88 M/mm3 (4.20-5.60); REDCELL DISTRIBUTION WIDTH-CV 13.2 % (11.5-14.5)
--- NOTE | 2021-05-26 05:31 | NUR ---
NO SEDATION VACATION PATIENT HAS RECENTLY BEEN INTUBATED ON VENTILATOR/ AND IS PRONE
[2021-05-26 05:39] LABS: ARTERIAL BLD GAS O2 SATURATION 97.9 % (92-100); ARTERIAL BLOOD GAS BASE EXCESS -0.3 (-2-2); ARTERIAL BLOOD GAS HCO3 23.8 meq/L (22-26); ARTERIAL BLOOD GAS PCO2 37.7 mmHg (35-45); ARTERIAL BLOOD GAS PO2 103.3 mmHg (80-100); ARTERIAL BLOOD GAS pH 7.42 (7.35-7.45)
[2021-05-26 05:47] LABS: CALCIUM 8.3 mg/dL (8.4-10.2); CREATININE, serum 0.75 mg/dL (0.72-1.25); MAGNESIUM 2.4 mg/dL (1.6-2.6); POTASSIUM 4.3 mmol/L (3.5-4.5)
[2021-05-26 18:53] LABS: COLLECTION METHOD CLEAN CATCH
[2021-05-26 19:01] LABS: MUCOUS Present (NOT PRESENT); PH 5 (5-8); SQUAMOUS EPITHELIAL None Seen /hpf (0-10); URINE APPEARANCE Cloudy (CLEAR/HAZY); URINE BACTERIA Rare /hpf (NONE SEEN); URINE BILIRUBIN Negative (NEGATIVE); URINE BLOOD 3+ (NEGATIVE); URINE CALCIUM OXALATE CRYSTAL Present (NOT PRESENT); URINE COLOR Yellow (YELLOW); URINE GLUCOSE Negative (NEGATIVE); URINE KETONE Negative (NEGATIVE); URINE LEUKOCYTE ESTERASE Negative (NEGATIVE); URINE NITRATE Negative (NEGATIVE); URINE PROTEIN(semi-quant) 1+ (NEGATIVE); URINE RBC >50 /hpf (0-2); URINE UROBILINOGEN Negative (NEGATIVE)
--- NOTE | 2021-05-26 19:08 | NUR ---
Patient sedation cut down gradually after being supine at 0815. Patient opens eyes and and nods head up and down to yes and no questions.
[2021-05-27] VITALS (738 sets, daily range): BP systolic 98–122; BP diastolic 67–87; PULSE 63–99; TEMP 36.9–37.5; O2SAT 82–100
[2021-05-27 04:07] LABS: HEMATOCRIT 46.9 % (42.0-52.0); MEAN CELL VOLUME 95 fl (80.0-100.0); MEAN CORPUSCULAR HEMOGLOBIN 33 pg (27-31); MEAN CORPUSCULAR HGB CONC 34 g/dl (33.0-37.0); MEAN PLATELET VOLUME 10.8 fl (7.4-10.4); PLATELET COUNT 115 K/mm3 (130-400); RED BLOOD COUNT 4.93 M/mm3 (4.20-5.60); REDCELL DISTRIBUTION WIDTH-CV 13.3 % (11.5-14.5)
--- NOTE | 2021-05-27 04:20 | NUR ---
PATIENT CONTINUES TO OVER RIDE THE VENT WITH BREATHING, PROPFOL AND FENTANYL ARE AT ELEVATED LEVELS. PRECEDEX STARTED
[2021-05-27 04:23] LABS: CALCIUM 8.5 mg/dL (8.4-10.2); CREATININE, serum 0.8 mg/dL (0.72-1.25); MAGNESIUM 2.5 mg/dL (1.6-2.6); POTASSIUM 4.3 mmol/L (3.5-4.5)
[2021-05-27 04:57] LABS: ARTERIAL BLD GAS TCO2 CT 23.6; ARTERIAL BLOOD GAS BASE EXCESS -1.9 (-2-2); ARTERIAL BLOOD GAS HCO3 22.4 meq/L (22-26); ARTERIAL BLOOD GAS PCO2 37.2 mmHg (35-45)
[2021-05-27 05:01] LABS: BAND 1 % (0-10); BASOPHIL 1 % (0-2); EOSINOPHIL 1 % (0-4); LYMPHOCYTE 3 % (20.0-51.0); NEUTROPHILS 88 % (42.0-75.2)
[2021-05-27 05:02] LABS: PLATELET ESTIMATE DECREASED (NORMAL)
[2021-05-27 05:02] LABS: ARTERIAL BLOOD GAS PO2 148.4 mmHg (80-100)
--- NOTE | 2021-05-27 05:09 | NUR ---
NO SEDATION VACATION PATIENT IS PRONE
--- NOTE | 2021-05-27 19:23 | NUR ---
Report given Betty Clement RN.
[2021-05-28] VITALS (656 sets, daily range): BP systolic 100–124; BP diastolic 65–89; PULSE 64–86; TEMP 97.5–99.5; O2SAT 86–100
[2021-05-28 03:06] LABS: ARTERIAL BLD GAS TCO2 CT 26.5; ARTERIAL BLOOD GAS BASE EXCESS 0.4 (-2-2); ARTERIAL BLOOD GAS HCO3 25.2 meq/L (22-26); ARTERIAL BLOOD GAS PCO2 41.5 mmHg (35-45); ARTERIAL BLOOD GAS PO2 95.1 mmHg (80-100)
[2021-05-28 04:46] LABS: BASO % 0.2 % (0.0-2.0); EOS % 0.3 % (0.0-4.0); GRAN # 12.3 K/mm3 (1.4-6.5); GRAN % 88.8 % (42.2-75.2); HEMOGLOBIN 14.4 g/dl (13.5-18.0); LYMPH # 0.6 K/mm3 (1.2-3.4); LYMPH % 4.1 % (20.0-51.0); MEAN CELL VOLUME 96 fl (80.0-100.0); MEAN CORPUSCULAR HEMOGLOBIN 32 pg (27-31); MEAN CORPUSCULAR HGB CONC 34 g/dl (33.0-37.0); MEAN PLATELET VOLUME 11.6 fl (7.4-10.4); MONO # 0.8 K/mm3 (0.1-0.6); MONO % 5.5 % (1.7-9.3); PLATELET COUNT 93 K/mm3 (130-400); REDCELL DISTRIBUTION WIDTH-CV 13.2 % (11.5-14.5)
[2021-05-28 05:06] LABS: ALBUMIN 2.8 gm/dL (3.5-5.0); BILIRUBIN,TOTAL 0.6 mg/dL (0.2-1.2); CALCIUM 7.8 mg/dL (8.4-10.2); CREATININE, serum 0.71 mg/dL (0.72-1.25); MAGNESIUM 2.5 mg/dL (1.6-2.6); PHOSPHOROUS 3.2 mg/dL (2.3-4.7); TOTAL PROTEIN 5.1 gm/dL (6.2-8.1)
--- NOTE | 2021-05-28 05:41 | NUR ---
SEDATION VACATION NOT DONE DUE TO PRONE POSITION.
--- NOTE | 2021-05-28 09:00 | NUR ---
VS stable at this time. Patient squeezed nures's hands on command but would not follow other commands and did not open eyes. Will continue to monitor.
--- NOTE | 2021-05-28 10:14 | NUR ---
Dr. Warren notified about elevated tryglycerides. Will switch from propofol to Versed for sedation.
--- NOTE | 2021-05-28 13:51 | NUR ---
Patient still on mechanical vent
--- NOTE | 2021-05-28 17:00 | NUR ---
Patient proned with four staff members; tolerated well. Sedation was increased at time of proning due to patient pulling at restraints and coughing against the ventilator.
[2021-05-29] VITALS (566 sets, daily range): BP systolic 100–122; BP diastolic 66–88; PULSE 70–81; TEMP 37.2; O2SAT 87–99
[2021-05-29 03:11] LABS: ARTERIAL BLD GAS O2 SATURATION 96.6 % (92-100); ARTERIAL BLD GAS TCO2 CT 30.4; ARTERIAL BLOOD GAS BASE EXCESS 3.5 (-2-2); ARTERIAL BLOOD GAS PO2 83.1 mmHg (80-100); ARTERIAL BLOOD GAS pH 7.41 (7.35-7.45)
[2021-05-29 04:53] LABS: BASO % 0.1 % (0.0-2.0); EOS # 0.1 K/mm3 (0.0-0.7); EOS % 0.4 % (0.0-4.0); GRAN # 12.2 K/mm3 (1.4-6.5); GRAN % 88.6 % (42.2-75.2); HEMATOCRIT 42.5 % (42.0-52.0); HEMOGLOBIN 13.8 g/dl (13.5-18.0); LYMPH # 0.6 K/mm3 (1.2-3.4); LYMPH % 4.4 % (20.0-51.0); MEAN CELL VOLUME 100 fl (80.0-100.0); MEAN CORPUSCULAR HEMOGLOBIN 33 pg (27-31); MEAN CORPUSCULAR HGB CONC 33 g/dl (33.0-37.0); MEAN PLATELET VOLUME 11.7 fl (7.4-10.4); MONO # 0.7 K/mm3 (0.1-0.6); MONO % 5.1 % (1.7-9.3); PLATELET COUNT 91 K/mm3 (130-400); RED BLOOD COUNT 4.25 M/mm3 (4.20-5.60); REDCELL DISTRIBUTION WIDTH-CV 13.6 % (11.5-14.5)
--- NOTE | 2021-05-29 05:33 | NUR ---
SEDATION VACATION NOT DONE DUE TO PRONE POSITION. PT FOLLOWS COMMANDS AND MOVES EXTREMITIES AT CURRENT SEDATION.
[2021-05-29 05:46] LABS: CALCIUM 7.8 mg/dL (8.4-10.2); CREATININE, serum 0.66 mg/dL (0.72-1.25)
--- NOTE | 2021-05-29 07:00 | NUR ---
Resumed care of PT. All lines, GTTs, tubes checks and verified. VSS. PT is still proned at this time.
--- NOTE | 2021-05-29 16:15 | NUR ---
Proned PT. Pts tube feed was cut in half to 30 ml/hr due to history of increased residuals throughout the night.
--- NOTE | 2021-05-29 17:20 | NUR ---
PT IS CURRENTLY PRONED. BECOMES UNCOMFORTABLE, ANXIOUS, AGGITATED WITH LOW SEDATION.
[2021-05-30] VITALS (767 sets, daily range): BP systolic 97–134; BP diastolic 62–84; PULSE 65–81; TEMP 97.7–99.7; O2SAT 66–100
[2021-05-30 03:28] LABS: ARTERIAL BLD GAS O2 SATURATION 97.2 % (92-100); ARTERIAL BLD GAS TCO2 CT 26.7; ARTERIAL BLOOD GAS BASE EXCESS 1.4 (-2-2); ARTERIAL BLOOD GAS HCO3 25.5 meq/L (22-26); ARTERIAL BLOOD GAS PCO2 38.5 mmHg (35-45); ARTERIAL BLOOD GAS PO2 84.8 mmHg (80-100); ARTERIAL BLOOD GAS pH 7.44 (7.35-7.45)
[2021-05-30 04:21] LABS: HEMATOCRIT 41.6 % (42.0-52.0); HEMOGLOBIN 13.7 g/dl (13.5-18.0); MEAN CELL VOLUME 98 fl (80.0-100.0); MEAN CORPUSCULAR HEMOGLOBIN 32 pg (27-31); MEAN CORPUSCULAR HGB CONC 33 g/dl (33.0-37.0); MEAN PLATELET VOLUME 11.6 fl (7.4-10.4); PLATELET COUNT 87 K/mm3 (130-400); RED BLOOD COUNT 4.24 M/mm3 (4.20-5.60); REDCELL DISTRIBUTION WIDTH-CV 13.9 % (11.5-14.5)
[2021-05-30 04:34] LABS: CALCIUM 8.2 mg/dL (8.4-10.2); CREATININE, serum 0.64 mg/dL (0.72-1.25); POTASSIUM 4.5 mmol/L (3.5-4.5)
[2021-05-30 05:25] LABS: BAND 4 % (0-10); LYMPHOCYTE 5 % (20.0-51.0); NEUTROPHILS 87 % (42.0-75.2); PLATELET ESTIMATE DECREASED (NORMAL)
--- NOTE | 2021-05-30 05:45 | NUR ---
SEDATION VACATION NOT DONE DUE TO PRONE POSITION.
--- NOTE | 2021-05-30 15:47 | NUR ---
PT TUBE FEED DROPPED TO 30 ML/HR DURING PRONED. PT HAS HX OF INCREASED RESIDUALS.
--- NOTE | 2021-05-30 17:00 | NUR ---
PT PRONED. FOR COMFORT NO SEDATION VACATION. PT IS AROUSED BY VOICE.
[2021-05-31] VITALS (672 sets, daily range): BP systolic 93–134; BP diastolic 61–89; PULSE 58–88; TEMP 97–99.2; O2SAT 80–100
[2021-05-31 03:09] LABS: ARTERIAL BLD GAS O2 SATURATION 95.3 % (92-100); ARTERIAL BLD GAS TCO2 CT 30.4; ARTERIAL BLOOD GAS BASE EXCESS 4.1 (-2-2); ARTERIAL BLOOD GAS PCO2 44.5 mmHg (35-45); ARTERIAL BLOOD GAS PO2 71.5 mmHg (80-100); ARTERIAL BLOOD GAS pH 7.43 (7.35-7.45)
--- NOTE | 2021-05-31 04:54 | NUR ---
SEDATION VACATION NOT DONE DUE TO PRONE POSITION. PT FOLLOWS COMMANDS AND MOVES EXTREMITIES.
[2021-05-31 05:53] LABS: HEMOGLOBIN 13.8 g/dl (13.5-18.0); MEAN CELL VOLUME 99 fl (80.0-100.0); MEAN CORPUSCULAR HEMOGLOBIN 33 pg (27-31); MEAN CORPUSCULAR HGB CONC 33 g/dl (33.0-37.0); MEAN PLATELET VOLUME 11.3 fl (7.4-10.4); PLATELET COUNT 95 K/mm3 (130-400); RED BLOOD COUNT 4.24 M/mm3 (4.20-5.60); REDCELL DISTRIBUTION WIDTH-CV 14.1 % (11.5-14.5)
[2021-05-31 07:05] LABS: CALCIUM 7.9 mg/dL (8.4-10.2); CREATININE, serum 0.64 mg/dL (0.72-1.25); POTASSIUM 4.3 mmol/L (3.5-4.5)
[2021-05-31 08:19] LABS: BAND 1 % (0-10); EOSINOPHIL 1 % (0-4); LYMPHOCYTE 7 % (20.0-51.0); NEUTROPHILS 87 % (42.0-75.2)
[2021-05-31 08:20] LABS: PLATELET ESTIMATE DECREASED (NORMAL)
--- NOTE | 2021-05-31 10:01 | NUR ---
street worker present while physician makes phone call to patient's . All questions and concerns answered by physician. Plan will be to look at a trach and peg early next week.
[2021-06-01] VITALS (676 sets, daily range): BP systolic 94–115; BP diastolic 59–78; PULSE 64–91; TEMP 97–99.9; O2SAT 71–100
[2021-06-01 02:28] LABS: ARTERIAL BLD GAS O2 SATURATION 97.4 % (92-100); ARTERIAL BLD GAS TCO2 CT 26.7; ARTERIAL BLOOD GAS BASE EXCESS 1.8 (-2-2); ARTERIAL BLOOD GAS HCO3 25.6 meq/L (22-26); ARTERIAL BLOOD GAS PCO2 37.3 mmHg (35-45); ARTERIAL BLOOD GAS PO2 94.6 mmHg (80-100); ARTERIAL BLOOD GAS pH 7.45 (7.35-7.45)
[2021-06-01 04:21] LABS: HEMOGLOBIN 13.6 g/dl (13.5-18.0); MEAN CELL VOLUME 99 fl (80.0-100.0); MEAN CORPUSCULAR HEMOGLOBIN 32 pg (27-31); MEAN CORPUSCULAR HGB CONC 32 g/dl (33.0-37.0); MEAN PLATELET VOLUME 11.1 fl (7.4-10.4); PLATELET COUNT 96 K/mm3 (130-400); RED BLOOD COUNT 4.25 M/mm3 (4.20-5.60); REDCELL DISTRIBUTION WIDTH-CV 14.1 % (11.5-14.5)
[2021-06-01 04:33] LABS: CALCIUM 8.1 mg/dL (8.4-10.2); CREATININE, serum 0.63 mg/dL (0.72-1.25); POTASSIUM 3.8 mmol/L (3.5-4.5)
[2021-06-01 04:44] LABS: EOSINOPHIL 2 % (0-4); HYPOCHROMIA 1+; LYMPHOCYTE 9 % (20.0-51.0); NEUTROPHILS 84 % (42.0-75.2); PLATELET ESTIMATE DECREASED (NORMAL); SCHISTOCYTES 1+
--- NOTE | 2021-06-01 05:26 | NUR ---
NO SEDATION VACATION PATIENT IS PRONE
--- NOTE | 2021-06-01 09:00 | NUR ---
Tolerated un-proning well; VS stable. Does not open eyes at this time but squeezed nurses hands on command. Will continue to monitor.
--- NOTE | 2021-06-01 14:00 | NUR ---
Dr. Butler notified that per Dr. Warren, patient is to be scheduled for a trach and peg on Friday. Dr. Butler states that he will not be available on Friday to perform the surgery, however he will contact his collegues to establish a time. Dr. Kaufman also notified about plan for Friday.
--- NOTE | 2021-06-01 20:37 | NUR ---
Assessment complete and charted. Patient repositioned and proned at this time.
[2021-06-02] VITALS (712 sets, daily range): BP systolic 89–109; BP diastolic 59–78; PULSE 63–105; TEMP 97.5–100; O2SAT 85–100
--- NOTE | 2021-06-02 00:43 | NUR ---
Residual 330. Tube feeds on hold.
--- NOTE | 2021-06-02 04:18 | NUR ---
Residual 130ml. Tube feeds resumed
[2021-06-02 05:26] LABS: ARTERIAL BLD GAS O2 SATURATION 89.7 % (92-100); ARTERIAL BLD GAS TCO2 CT 26.8; ARTERIAL BLOOD GAS BASE EXCESS 0.8 (-2-2); ARTERIAL BLOOD GAS HCO3 25.5 meq/L (22-26); ARTERIAL BLOOD GAS PCO2 41.3 mmHg (35-45); ARTERIAL BLOOD GAS pH 7.41 (7.35-7.45)
[2021-06-02 05:41] LABS: HEMATOCRIT 42.8 % (42.0-52.0); HEMOGLOBIN 13.8 g/dl (13.5-18.0); MEAN CELL VOLUME 100 fl (80.0-100.0); MEAN CORPUSCULAR HEMOGLOBIN 32 pg (27-31); MEAN CORPUSCULAR HGB CONC 32 g/dl (33.0-37.0); MEAN PLATELET VOLUME 11.7 fl (7.4-10.4); PLATELET COUNT 107 K/mm3 (130-400); RED BLOOD COUNT 4.28 M/mm3 (4.20-5.60); REDCELL DISTRIBUTION WIDTH-CV 14.7 % (11.5-14.5)
[2021-06-02 05:53] LABS: CALCIUM 8.2 mg/dL (8.4-10.2); CREATININE, serum 0.65 mg/dL (0.72-1.25); POTASSIUM 4.1 mmol/L (3.5-4.5)
[2021-06-02 06:06] LABS: BAND 3 % (0-10); EOSINOPHIL 2 % (0-4); LYMPHOCYTE 10 % (20.0-51.0); METAMYELOCYTE 1 % (0-0); NEUTROPHILS 75 % (42.0-75.2)
[2021-06-02 06:07] LABS: PLATELET ESTIMATE DECREASED (NORMAL)
--- NOTE | 2021-06-02 07:00 | NUR ---
Resumed care of PT. All lines, tubes, GTTS, vent check and verified. VSS. Pt is more awake today more than before on same sedation. May need to increase sedation for comfort and VS. see GTT titrations.
--- NOTE | 2021-06-02 07:11 | NUR ---
Report given to JOHANA Redd
--- NOTE | 2021-06-02 07:32 | NUR ---
Comfirmed through notes that Surgery is aware of TRACH/PEG Sunday 06/04, consult called in by Demetria VAUGHN.
--- NOTE | 2021-06-02 09:55 | NUR ---
UPDATED ON PTs STATUS
--- NOTE | 2021-06-02 10:30 | NUR ---
Dr. Warren spoke with family and discussed about the procedure of TRACH/PEG.
--- NOTE | 2021-06-02 17:00 | NUR ---
PT ON A LIGHT SEDATION AND WAKES TO VOICE. WHEN SEDATION IS TOO LOW THE PT BECOMES AGGITATED AND HR INCREASES.
--- NOTE | 2021-06-02 19:45 | NUR ---
Patient occasionally coughing against the ventilator but tolerating well. ET tube suctioned but did not receive any sputum. Patient opens eyes and follows basic commands. Will continue to monitor.
--- NOTE | 2021-06-02 22:54 | NUR ---
Updated on patient status; all questions and concerns addressed at this time.
[2021-06-03] VITALS (1330 sets, daily range): BP systolic 85–108; BP diastolic 56–77; PULSE 72–94; TEMP 98.8–99.8; O2SAT 70–100
--- NOTE | 2021-06-03 05:00 | NUR ---
Sedation vacation not performed due to patient resting with eyes open and following verbal commands on current sedation levels.
[2021-06-03 05:19] LABS: ARTERIAL BLD GAS O2 SATURATION 95.9 % (92-100); ARTERIAL BLOOD GAS BASE EXCESS 2.9 (-2-2); ARTERIAL BLOOD GAS HCO3 26.9 meq/L (22-26); ARTERIAL BLOOD GAS PCO2 38.8 mmHg (35-45); ARTERIAL BLOOD GAS PO2 76.1 mmHg (80-100); ARTERIAL BLOOD GAS pH 7.46 (7.35-7.45)
[2021-06-03 05:30] LABS: BASO % 0.2 % (0.0-2.0); EOS # 0.3 K/mm3 (0.0-0.7); EOS % 1.7 % (0.0-4.0); GRAN # 13.6 K/mm3 (1.4-6.5); GRAN % 86.7 % (42.2-75.2); HEMATOCRIT 41.6 % (42.0-52.0); HEMOGLOBIN 13.4 g/dl (13.5-18.0); LYMPH # 0.9 K/mm3 (1.2-3.4); LYMPH % 5.9 % (20.0-51.0); MEAN CELL VOLUME 102 fl (80.0-100.0); MEAN CORPUSCULAR HEMOGLOBIN 33 pg (27-31); MEAN CORPUSCULAR HGB CONC 32 g/dl (33.0-37.0); MEAN PLATELET VOLUME 11.6 fl (7.4-10.4); MONO # 0.7 K/mm3 (0.1-0.6); MONO % 4.7 % (1.7-9.3); PLATELET COUNT 104 K/mm3 (130-400); REDCELL DISTRIBUTION WIDTH-CV 14.9 % (11.5-14.5)
[2021-06-03 06:58] LABS: CREATININE, serum 0.59 mg/dL (0.72-1.25); POTASSIUM 3.9 mmol/L (3.5-4.5)
--- NOTE | 2021-06-03 07:00 | NUR ---
Resumed care of PT. All lines, GTTs, tubes and vent check and verified. VSS. PT had an uneventful night. PT is Supine and will resume Proning this afternoon.
--- NOTE | 2021-06-03 11:25 | NUR ---
Updated family on PT status per notes by DR. NASH.
--- NOTE | 2021-06-03 17:04 | NUR ---
No sedation vacation. PT is proned and sedated for comfort.
--- NOTE | 2021-06-03 17:05 | NUR ---
PTs TF cut to 30 ml/hr 30 ml/q4hr flush for proning due to HX of increased/high residuals.
--- NOTE | 2021-06-03 21:13 | NUR ---
Update given to patient's when she calls. We discuss how the trach will be more helpful in extended weaning on the vent, allowing for more flexibility and less breakdown and discomfort in his airway. we also discuss what to expect when looking at the pneumonia on the xrays. she verbalizes understanding.
[2021-06-04] VITALS (701 sets, daily range): BP systolic 93–118; BP diastolic 57–78; PULSE 66–95; TEMP 98.8–100.3; O2SAT 74–100
[2021-06-04 03:40] LABS: ARTERIAL BLD GAS O2 SATURATION 95.9 % (92-100); ARTERIAL BLD GAS TCO2 CT 28.8; ARTERIAL BLOOD GAS BASE EXCESS 2.5 (-2-2); ARTERIAL BLOOD GAS HCO3 27.5 meq/L (22-26); ARTERIAL BLOOD GAS PCO2 43.6 mmHg (35-45); ARTERIAL BLOOD GAS PO2 80.4 mmHg (80-100); ARTERIAL BLOOD GAS pH 7.42 (7.35-7.45)
--- NOTE | 2021-06-04 05:05 | NUR ---
SEDATION VACATION NOT ATTEMPTED D/T PATIENT BEING IN PRONE POSITION
[2021-06-04 05:20] LABS: ALBUMIN 2.8 gm/dL (3.5-5.0); BILIRUBIN,TOTAL 1.3 mg/dL (0.2-1.2); CALCIUM 8.3 mg/dL (8.4-10.2); CREATININE, serum 0.64 mg/dL (0.72-1.25); PHOSPHOROUS 4.1 mg/dL (2.3-4.7); TOTAL PROTEIN 5.4 gm/dL (6.2-8.1)
[2021-06-04 05:36] LABS: BASO # 0.1 K/mm3 (0.0-0.2); BASO % 0.4 % (0.0-2.0); EOS # 0.4 K/mm3 (0.0-0.7); EOS % 3.4 % (0.0-4.0); GRAN # 10.3 K/mm3 (1.4-6.5); GRAN % 84.6 % (42.2-75.2); HEMOGLOBIN 12.8 g/dl (13.5-18.0); LYMPH # 0.6 K/mm3 (1.2-3.4); LYMPH % 5.2 % (20.0-51.0); MEAN CELL VOLUME 102 fl (80.0-100.0); MEAN CORPUSCULAR HEMOGLOBIN 33 pg (27-31); MEAN CORPUSCULAR HGB CONC 32 g/dl (33.0-37.0); MEAN PLATELET VOLUME 11.4 fl (7.4-10.4); MONO # 0.7 K/mm3 (0.1-0.6); MONO % 5.5 % (1.7-9.3); PLATELET COUNT 115 K/mm3 (130-400); RED BLOOD COUNT 3.94 M/mm3 (4.20-5.60); REDCELL DISTRIBUTION WIDTH-CV 14.8 % (11.5-14.5)
--- NOTE | 2021-06-04 07:24 | NUR ---
REPORT GIVEN TO JOHANA POZO
--- NOTE | 2021-06-04 08:47 | NUR ---
REPORT RECEIVED FROM JOHANA MADDOX. BILATERAL WRIST RESTRAINTS IN PLACE. FC TO DEPENDENT DRAINAGE. GONZÁLEZ PICC IN PLACE WITH MEDICATION INFUSING; SEE GTT FLOW SHEET. 8.0 ETT TUBE 24CM AT LIP WITH CURRENT VENTILATOR SETTING; AC MODE, TV 420, PEEP 14, FIO2 65, RATE 22. PT ACCEPTING MECHANICAL VENTILATION. OG IN PLACE AT 60CM AT LIP; TF INFUSING AT 30ML/HR. PT CURRENTLY IN PRONE POSITION. PLAN TO REPOSITION PT TO SUPINE POSITION THIS AM. VITAL SIGNS STABLE.
--- NOTE | 2021-06-04 08:56 | NUR ---
PT REPOSITIONED FROM PRONE TO SUPINE POSITION WITH ASSISTANCE OF RT AND PT. PT TOLERATED REPOSITIONING WELL. VITAL SIGNS REMAINED STABLE THROUGHOUT. BILATERAL WRIST RESTRAINTS REMAIN IN PLACE.
--- NOTE | 2021-06-04 10:34 | NUR ---
THIS NURSE SPOKE WITH OR ETHNOGRAPHER SHARYN TO COORDINATE A TIME FOR PT TO GO TO SURGERY FOR TRACH AND PEG PLACEMENT. SHARYN STATES THAT SHE WILL CONTACT BOTH ENT AND GENERAL SURGERY TO GET AN OFFICIAL TIME FOR SURGERY.
--- NOTE | 2021-06-04 11:30 | NUR ---
Patient scheduled to get a trach and peg tomorrow. Clinical referral sent to [facility].
--- NOTE | 2021-06-04 14:30 | NUR ---
THIS NURSE SPOKE WITH PT'S ; TERESE. LET HER KNOW THAT SURGERY IS SCHEDULED FOR 12PM TOMORROW AND THAT HER AND THE PT'S SON ARE ABLE TO COME IN AT 11. AFTER SURGERY; PT WILL NO LONGER BE PLACED IN ISOLATION AND PT'S AND SON WILL BE ABLE TO VISIT WITH PT FOR THE REMAINDER OF VISITING HOURS.
--- NOTE | 2021-06-04 16:06 | NUR ---
PT PLACED IN PRONE POSITION AT THIS TIME, TOLERATING WELL.
--- NOTE | 2021-06-04 16:20 | NUR ---
PT PLACED IN PRONE POSITION WITH ASSISTANCE OF RT AND PHYSICAL THERAPY. PT TOLERATED POSITION CHANGE WELL AND VITAL SIGNS REMAINED STABLE THROUGH OUT. PT IS FACING LEFT WITH LEFT HAND UP. BILATERAL WRIST RESTRAINTS REMAIN IN PLACE.
--- NOTE | 2021-06-04 17:15 | NUR ---
NOT APPROPRIATE AT THIS TIME DUE TO PT BEING IN PRONE POSITION.
--- NOTE | 2021-06-04 17:36 | NUR ---
PT IN PRONE POSITION, HEAD NOT AT 30 DEGREES.
[2021-06-05] VITALS (501 sets, daily range): BP systolic 98–129; BP diastolic 63–77; PULSE 60–93; TEMP 97.3–100.9; O2SAT 82–100
[2021-06-05 03:43] LABS: ARTERIAL BLD GAS O2 SATURATION 89.6 % (92-100); ARTERIAL BLD GAS TCO2 CT 28.6; ARTERIAL BLOOD GAS BASE EXCESS 3.3 (-2-2); ARTERIAL BLOOD GAS HCO3 27.3 meq/L (22-26); ARTERIAL BLOOD GAS PCO2 39.7 mmHg (35-45); ARTERIAL BLOOD GAS PO2 53.4 mmHg (80-100); ARTERIAL BLOOD GAS pH 7.46 (7.35-7.45)
--- NOTE | 2021-06-05 05:55 | NUR ---
PATIENT IS PRONE NO SEDATION VACATION
[2021-06-05 07:47] LABS: BASO % 0.4 % (0.0-2.0); EOS # 0.4 K/mm3 (0.0-0.7); GRAN # 8.6 K/mm3 (1.4-6.5); GRAN % 83.4 % (42.2-75.2); HEMOGLOBIN 13.6 g/dl (13.5-18.0); LYMPH # 0.6 K/mm3 (1.2-3.4); LYMPH % 5.6 % (20.0-51.0); MEAN CELL VOLUME 101 fl (80.0-100.0); MEAN CORPUSCULAR HEMOGLOBIN 32 pg (27-31); MEAN CORPUSCULAR HGB CONC 32 g/dl (33.0-37.0); MONO # 0.6 K/mm3 (0.1-0.6); MONO % 5.9 % (1.7-9.3); PLATELET COUNT 129 K/mm3 (130-400); RED BLOOD COUNT 4.24 M/mm3 (4.20-5.60); REDCELL DISTRIBUTION WIDTH-CV 14.9 % (11.5-14.5)
[2021-06-05 08:00] LABS: CALCIUM 8.5 mg/dL (8.4-10.2); CREATININE, serum 0.6 mg/dL (0.72-1.25)
--- NOTE | 2021-06-05 08:33 | NUR ---
ALARMS TESTED AND WORKING.
--- NOTE | 2021-06-05 08:49 | NUR ---
ALARMS TESTED AND WORKING.
[2021-06-05 10:37] LABS: COLLECTION METHOD IN
[2021-06-05 11:21] LABS: AMORPHOUS CRYSTAL Present (NOT PRESENT); MUCOUS Present (NOT PRESENT); PH 5 (5-8); SQUAMOUS EPITHELIAL None Seen /hpf (0-10); URINE APPEARANCE Turbid (CLEAR/HAZY); URINE BACTERIA Rare /hpf (NONE SEEN); URINE BILIRUBIN Negative (NEGATIVE); URINE BLOOD 3+ (NEGATIVE); URINE COLOR Amber (YELLOW); URINE GLUCOSE Negative (NEGATIVE); URINE KETONE Negative (NEGATIVE); URINE LEUKOCYTE ESTERASE Trace (NEGATIVE); URINE NITRATE Negative (NEGATIVE); URINE PROTEIN(semi-quant) 1+ (NEGATIVE); URINE RBC >50 /hpf (0-2); URINE UROBILINOGEN >=4.0 (NEGATIVE); URINE WBC 20-50 /hpf (0-2)
--- NOTE | 2021-06-05 11:47 | NUR ---
Patient's and eldest son arrive to unit before patient's procedure. Spoke with Eun about the need for post acute rehab and that a referral has been sent to [facility]. Trach and peg to be placed today.
--- NOTE | 2021-06-05 12:13 | NUR ---
transfered from ICU to OR at this time. Patient stable upon transfer. Patient's family at bedside during transfer; all questions and concerns addressed at this time.
--- NOTE | 2021-06-05 14:44 | NUR ---
UA shows 20-50 WBC's. Hospitalist notified; will continue current ABX coverage and Kovacs catheter exchanged at this time.
--- NOTE | 2021-06-05 16:09 | NUR ---
PT IN PROCEDURE AT THIS TIME
--- NOTE | 2021-06-05 19:32 | NUR ---
Received report from JOHANA Augustin. All medications verified and all questions answered. Patient had trach and peg procedure this afternoon. Peg tube at 4cm, dressing CDI. No concerns or complaints with trach at this time. Ventilator settings of 420TV, 14 PEEP, 100% FIO2 and 24RR on AC mode. Kovacs patent to dependent drainage with leesa, clear urine noted. Versed gtt running at 9mls/hr, precedex gtt at 7.2mls/hr and fentanyl gtt at 12.5mls/hr. VSS. Will resume care of patient at this time.
[2021-06-06] VITALS (614 sets, daily range): BP systolic 97–1001; BP diastolic 62–72; PULSE 73–102; TEMP 98.5–98.8; O2SAT 89–100
[2021-06-06 02:49] LABS: ARTERIAL BLD GAS O2 SATURATION 96.9 % (92-100); ARTERIAL BLD GAS TCO2 CT 28.3; ARTERIAL BLOOD GAS BASE EXCESS 1.6 (-2-2); ARTERIAL BLOOD GAS HCO3 26.9 meq/L (22-26); ARTERIAL BLOOD GAS PO2 89.2 mmHg (80-100)
--- NOTE | 2021-06-06 05:13 | NUR ---
Sedation vacation not attempted at this time d/t patient being unable to tolerate ventilator and breathing over and coughing when sedation turned down.
[2021-06-06 05:27] LABS: BASO % 0.5 % (0.0-2.0); EOS # 0.2 K/mm3 (0.0-0.7); EOS % 2.9 % (0.0-4.0); GRAN # 6.7 K/mm3 (1.4-6.5); GRAN % 83.3 % (42.2-75.2); HEMATOCRIT 37.2 % (42.0-52.0); LYMPH # 0.5 K/mm3 (1.2-3.4); LYMPH % 6.2 % (20.0-51.0); MEAN CELL VOLUME 103 fl (80.0-100.0); MEAN CORPUSCULAR HEMOGLOBIN 32 pg (27-31); MEAN CORPUSCULAR HGB CONC 31 g/dl (33.0-37.0); MONO # 0.5 K/mm3 (0.1-0.6); MONO % 6.6 % (1.7-9.3); PLATELET COUNT 135 K/mm3 (130-400); RED BLOOD COUNT 3.62 M/mm3 (4.20-5.60); REDCELL DISTRIBUTION WIDTH-CV 14.6 % (11.5-14.5)
[2021-06-06 05:37] LABS: HEMOGLOBIN 11.6 g/dl (13.5-18.0)
[2021-06-06 05:49] LABS: CALCIUM 8.2 mg/dL (8.4-10.2); CREATININE, serum 0.66 mg/dL (0.72-1.25); POTASSIUM 3.9 mmol/L (3.5-4.5)
--- NOTE | 2021-06-06 09:05 | NUR ---
Patient not following commands at this time. Precedex discontinued per Dr. Warren to assess mentation.
--- NOTE | 2021-06-06 09:46 | NUR ---
Per Peyman at [facility], patient's FIo2 and peep setting will have to be at least 70% with a peep of 10. Current settings are 70% with a peep of 14. Peyman requests clinical updates be sent tomorrow morning to assess patient. At this time, the patient is not "stable" enough for an acceptance to [facility].
--- NOTE | 2021-06-06 10:30 | NUR ---
Ok to re-start Lovenox and use peg tube per Dr. Mejía.
--- NOTE | 2021-06-06 10:33 | NUR ---
Initial visit; Patient appeared to be asleep, his family had requested prayer for him so Ems Instructor Layed Hands on patient and offered prayer for recovery.
--- NOTE | 2021-06-06 10:40 | NUR ---
Attempted to stop precedex, however patient now coughing forcefully and frequently against the ventilator. O2 desaturating and not pulling adaquate tidal volumes with frequent coughing. Discussed with Dr. Warren and will re-start precedex at half the previous rate.
[2021-06-07] VITALS (1080 sets, daily range): BP systolic 101–131; BP diastolic 64–85; PULSE 89–106; TEMP 98.7–101.2; O2SAT 83–100
[2021-06-07 03:22] LABS: ARTERIAL BLD GAS O2 SATURATION 95.7 % (92-100); ARTERIAL BLD GAS TCO2 CT 25.8; ARTERIAL BLOOD GAS BASE EXCESS 0.7 (-2-2); ARTERIAL BLOOD GAS HCO3 24.7 meq/L (22-26); ARTERIAL BLOOD GAS PCO2 37.4 mmHg (35-45); ARTERIAL BLOOD GAS PO2 77.3 mmHg (80-100); ARTERIAL BLOOD GAS pH 7.44 (7.35-7.45)
[2021-06-07 05:17] LABS: HEMOGLOBIN 10.9 g/dl (13.5-18.0); MEAN CELL VOLUME 102 fl (80.0-100.0); MEAN CORPUSCULAR HEMOGLOBIN 32 pg (27-31); MEAN CORPUSCULAR HGB CONC 32 g/dl (33.0-37.0); MEAN PLATELET VOLUME 11.9 fl (7.4-10.4); PLATELET COUNT 150 K/mm3 (130-400); RED BLOOD COUNT 3.36 M/mm3 (4.20-5.60); REDCELL DISTRIBUTION WIDTH-CV 14.8 % (11.5-14.5)
[2021-06-07 05:20] LABS: HEMATOCRIT 34.3 % (42.0-52.0)
[2021-06-07 05:31] LABS: CALCIUM 7.9 mg/dL (8.4-10.2); CREATININE, serum 0.68 mg/dL (0.72-1.25); POTASSIUM 3.5 mmol/L (3.5-4.5)
--- NOTE | 2021-06-07 07:00 | NUR ---
RECEIVED REPORT FROM JOHANA WALTER. PT RESTING ON VENT SETTINGS: TV 420, PEEP 12, RR 22, 45%. VSS. FC PATENT AND DRAINING TO GRAVITY. LENS FINISHER IN PLACE. SEE GTT FLOWSHEET.
--- NOTE | 2021-06-07 08:40 | NUR ---
Clinical updates faxed to [facility]
--- NOTE | 2021-06-07 11:05 | NUR ---
Patient's Eun present at bedside. Provided update that we are waiting on an insurance authorization for transfer. Eun verbalized her understanding on the above and is appreciative.
--- NOTE | 2021-06-07 16:31 | NUR ---
Insurance authorization approved and [facility] in [place] is able to accept the patient on Thursday 06/08. EMS transfer arranged for 1100 am Friday morning. Patient's Eun notified of the above. States the patient's father is driving into town and is hopeful that they can visit before the patient transfers.
--- NOTE | 2021-06-07 16:55 | NUR ---
PT IS HAVING AN EXTENSIVE COUGHING FIT AT THIS TIME. HR AND RR ARE INCREASED, I SUCTIONED TRACH WITH LITTLE RETURN. PT THEN LAVAGE SUCTIONED WITH VERY SMALL RETURN. RN AWARE.
--- NOTE | 2021-06-07 17:55 | NUR ---
PER RT CHANGES TO VENT AT THIS TIME: TV 450, PEEP 14, RR 20, FIO2 100%. RR REMAINS IN THE HIGH 30s TO LOW 40s, HR 100-115, POX 95-97% BP 134/82. PT STILL COUHGING AGAINST VENTILATOR.
[2021-06-07 19:08] LABS: ARTERIAL BLD GAS O2 SATURATION 99.3 % (92-100); ARTERIAL BLOOD GAS BASE EXCESS 2.2 (-2-2); ARTERIAL BLOOD GAS HCO3 25.9 meq/L (22-26); ARTERIAL BLOOD GAS pH 7.46 (7.35-7.45)
[2021-06-07 19:09] LABS: ARTERIAL BLOOD GAS PO2 199.1 mmHg (80-100)
[2021-06-08] VITALS (627 sets, daily range): BP systolic 112–140; BP diastolic 70–95; PULSE 79–103; TEMP 98.8–101; O2SAT 82–99
--- NOTE | 2021-06-08 00:44 | NUR ---
PT CURRENTLY RESTFUL WITH SEDATION, VSS. HOWEVER, HAS HAD TWO VIOLENT COUGHING FITS THIS SHIFT TRIGGERED BY REPOSITIONING. PT VERY SENSITIVE TO MOVEMENT, DIFFICULT TO STOP COUGHING ONCE STARTED. DURING AN EPISODE, PULSE OXIMETRY DROPS FROM 99 TO ABOUT 90% FOR 15-20MINUTES, RESPIRATORY RATE INCREASING TO THE HIGH 40'S FOR SIMILAR TIME. BUNDLING CARE TO DECREASE STIMULATION MUCH POSSIBLE TO KEEP PATIENT COMFORTABLE AND STABLE. WILL CONTINUE TO MONITOR.
[2021-06-08 05:14] LABS: HEMOGLOBIN 10.7 g/dl (13.5-18.0); MEAN CELL VOLUME 103 fl (80.0-100.0); MEAN CORPUSCULAR HEMOGLOBIN 32 pg (27-31); MEAN CORPUSCULAR HGB CONC 32 g/dl (33.0-37.0); MEAN PLATELET VOLUME 11.6 fl (7.4-10.4); PLATELET COUNT 162 K/mm3 (130-400); REDCELL DISTRIBUTION WIDTH-CV 14.9 % (11.5-14.5)
[2021-06-08 05:21] LABS: HEMATOCRIT 33.9 % (42.0-52.0)
[2021-06-08 05:22] LABS: ARTERIAL BLD GAS O2 SATURATION 94.7 % (92-100); ARTERIAL BLD GAS TCO2 CT 28.6; ARTERIAL BLOOD GAS BASE EXCESS 4.1 (-2-2); ARTERIAL BLOOD GAS HCO3 27.5 meq/L (22-26); ARTERIAL BLOOD GAS PCO2 36.7 mmHg (35-45); ARTERIAL BLOOD GAS pH 7.49 (7.35-7.45)
--- NOTE | 2021-06-08 05:23 | NUR ---
SEDATION VACATION ATTEMPT QUICKLY ABORTED PT HAD INCREASED REACTION AND COUGHING FIT WHEN RT IN TO DO BLOOD GAS AT THIS TIME. SEDATING MEDS LEFT PREVIOUSLY RUNNING.
[2021-06-08 05:36] LABS: CREATININE, serum 0.68 mg/dL (0.72-1.25); POTASSIUM 3.6 mmol/L (3.5-4.5)
--- NOTE | 2021-06-08 07:00 | NUR ---
RECEIVED REPORT FROM JOHANA WALTER. PT RESTING ON VENT: TV 420, PEEP 12, RR 20, 50%. TF INFUSING AT 65ML/HR IN PEG TUBE. VSS. GRAIN COMMODITY MANAGER IN PLACE. FC PATENT AND DRAINING TO GRAVITY. SEE GTT FLOWSHEET.
--- NOTE | 2021-06-08 09:07 | NUR ---
Patient became unstable overnight. [facility] transfer today called off. [facility] contacted and transfer cancelled.
--- NOTE | 2021-06-08 10:03 | NUR ---
PT TO CT AT 0946, BACK AT 1003. PT TOLERATED WELL. VEC IV PUSH GIVEN BEFORE PER DR NASH'S REQUEST BECAUSE PT WAS OVER BREATHING THE VENT AND POX WAS 89-91%. VEC GIVEN AT 0920 WITH TOF 4/4 ON LEVEL 5 ON LEFT CRANIAL NERVE.
--- NOTE | 2021-06-08 17:00 | NUR ---
WITH ANY MOVEMENT OF TRYING TO TURN DOWN SEDATION, PT STARTS TO HAVE COUGHING FITS AND RR HIT HIGH 40s SETTING OFF VENT ALARMS AND TAKES AWHILE TO SETTLE BACK DOWN.
--- NOTE | 2021-06-08 20:00 | NUR ---
UPON ASSESSMENT AND ORAL CARE, PATIENT BECOMES VERY TACHYPNEIC AND LABORED BREATHING. SEDATION INCREASED AND ATTEMPTS ARE MADE TO NECK BAND SETTER THE PATIENT INTO SLOWING HIS BREATHING DOWN, BUT HE DOES NOT ACKNOWLEDGE ME OR TRACK WHAT I'M SAYING. HE DOES NOT RESPOND APPROPRIATELY TO NORMAL STIMULI.
--- NOTE | 2021-06-08 22:00 | NUR ---
PATIENT CONTINUES TO OVERBREATHE THE VENT FOR EXTENDED PERIOD OF TIME WITH NO SUCCESS IN CHANGING SEDATION ON PUMPS. PATIENT DOES NOT WAKE TO STIMULI, SUGGESTING DEEP SEDATION. VECURONIUM GIVEN TO CALM HIM HIS RR IS IN 50s AND HR IS 120s AND ALLOW HIM TO BE MORE COMPLIANT WITH THE VENT.
[2021-06-09] VITALS (750 sets, daily range): BP systolic 101–117; BP diastolic 64–76; PULSE 70–101; TEMP 98.7–100.3; O2SAT 90–100
[2021-06-09 00:29] LABS: COLLECTION METHOD IN
[2021-06-09 00:36] LABS: MUCOUS Present (NOT PRESENT); PH 5 (5-8); SQUAMOUS EPITHELIAL 0-2 /hpf (0-10); URINE APPEARANCE Cloudy (CLEAR/HAZY); URINE BACTERIA Rare /hpf (NONE SEEN); URINE BILIRUBIN Negative (NEGATIVE); URINE BLOOD 1+ (NEGATIVE); URINE COLOR Amber (YELLOW); URINE GLUCOSE Negative (NEGATIVE); URINE KETONE Trace (NEGATIVE); URINE LEUKOCYTE ESTERASE Negative (NEGATIVE); URINE NITRATE Negative (NEGATIVE); URINE PROTEIN(semi-quant) 2+ (NEGATIVE); URINE UROBILINOGEN >=4.0 (NEGATIVE)
[2021-06-09 04:08] LABS: ARTERIAL BLD GAS O2 SATURATION 95.7 % (92-100); ARTERIAL BLD GAS TCO2 CT 28.7; ARTERIAL BLOOD GAS BASE EXCESS 2.4 (-2-2); ARTERIAL BLOOD GAS HCO3 27.4 meq/L (22-26); ARTERIAL BLOOD GAS PO2 77.2 mmHg (80-100); ARTERIAL BLOOD GAS pH 7.41 (7.35-7.45)
--- NOTE | 2021-06-09 05:02 | NUR ---
patient does not meet weaning requirements
[2021-06-09 05:47] LABS: HEMOGLOBIN 10.8 g/dl (13.5-18.0); MEAN CELL VOLUME 102 fl (80.0-100.0); MEAN CORPUSCULAR HEMOGLOBIN 32 pg (27-31); MEAN CORPUSCULAR HGB CONC 31 g/dl (33.0-37.0); MEAN PLATELET VOLUME 11.6 fl (7.4-10.4); PLATELET COUNT 178 K/mm3 (130-400); RED BLOOD COUNT 3.37 M/mm3 (4.20-5.60)
[2021-06-09 05:53] LABS: HEMATOCRIT 34.5 % (42.0-52.0)
[2021-06-09 06:09] LABS: ANISOCYTOSIS 1+; BAND 4 % (0-10); EOSINOPHIL 2 % (0-4); LYMPHOCYTE 10 % (20.0-51.0); METAMYELOCYTE 2 % (0-0); NEUTROPHILS 75 % (42.0-75.2); PLATELET ESTIMATE NORMAL (NORMAL)
[2021-06-09 06:24] LABS: ALBUMIN 1.8 gm/dL (3.5-5.0); BILIRUBIN,TOTAL 0.8 mg/dL (0.2-1.2); C-REACTIVE PROTEIN 25.12 mg/dL (0.00-0.50); CALCIUM 8.2 mg/dL (8.4-10.2); CREATININE, serum 0.67 mg/dL (0.72-1.25); TOTAL PROTEIN 5.5 gm/dL (6.2-8.1)
--- NOTE | 2021-06-09 07:10 | NUR ---
RECEIVED REPORT FROM JOHANA MADDOX. PT RESTING ON VENT: TV 400, RR 20, PEEP 14, 80%. DRAFTER GEOLOGICAL IN PLACE. TF INFUSING AT 65ML/HR IN PEG TUBE. VSS. FC PATENT AND DRAINING TO GRAVITY. SEE GTT FLOWSHEET.
[2021-06-10] VITALS (882 sets, daily range): BP systolic 106–132; BP diastolic 57–81; PULSE 33–93; TEMP 97.7–100; O2SAT 86–100
[2021-06-10 04:31] LABS: ARTERIAL BLD GAS O2 SATURATION 86.3 % (92-100); ARTERIAL BLOOD GAS BASE EXCESS 3.2 (-2-2); ARTERIAL BLOOD GAS HCO3 30.2 meq/L (22-26); ARTERIAL BLOOD GAS PCO2 55.9 mmHg (35-45); ARTERIAL BLOOD GAS PO2 52.9 mmHg (80-100); ARTERIAL BLOOD GAS pH 7.35 (7.35-7.45)
[2021-06-10 05:44] LABS: HEMOGLOBIN 11.1 g/dl (13.5-18.0); MEAN CELL VOLUME 104 fl (80.0-100.0); MEAN CORPUSCULAR HEMOGLOBIN 32 pg (27-31); MEAN CORPUSCULAR HGB CONC 31 g/dl (33.0-37.0); MEAN PLATELET VOLUME 12.2 fl (7.4-10.4); PLATELET COUNT 177 K/mm3 (130-400); RED BLOOD COUNT 3.45 M/mm3 (4.20-5.60); REDCELL DISTRIBUTION WIDTH-CV 14.7 % (11.5-14.5)
[2021-06-10 05:57] LABS: ALBUMIN 1.8 gm/dL (3.5-5.0); BILIRUBIN,TOTAL 0.7 mg/dL (0.2-1.2); C-REACTIVE PROTEIN 18.75 mg/dL (0.00-0.50); CALCIUM 8.3 mg/dL (8.4-10.2); CREATININE, serum 0.6 mg/dL (0.72-1.25); HEMATOCRIT 35.9 % (42.0-52.0); POTASSIUM 3.8 mmol/L (3.5-4.5); TOTAL PROTEIN 5.6 gm/dL (6.2-8.1)
--- NOTE | 2021-06-10 07:00 | NUR ---
RECEIVED REPORT FROM JOHANA HEADLEY. VENT SETTINGS UNCHANGED. FC PATENT AND DRAINING TO GRAVITY. VSS. FRONT DESK REPRESENTATIVE IN PLACE. SEE GTT FLOWSHEET.
[2021-06-10 07:05] LABS: BAND 2 % (0-10); BASOPHIL 1 % (0-2); EOSINOPHIL 3 % (0-4); LYMPHOCYTE 7 % (20.0-51.0); METAMYELOCYTE 3 % (0-0); NEUTROPHILS 80 % (42.0-75.2); PLATELET ESTIMATE NORMAL (NORMAL)
--- NOTE | 2021-06-10 17:00 | NUR ---
PT OPENS EYES TO PAIN AND SOMETIMES VERBAL. DOES NOT TRACK WHEN SPOKEN TO BUT DOES BLINK EYES AND LOOKS AROUND OCCASSIONALLY.
[2021-06-11] VITALS (798 sets, daily range): BP systolic 112–125; BP diastolic 66–82; PULSE 88–91; TEMP 98.7–100.1; O2SAT 81–100
[2021-06-11 04:14] LABS: ARTERIAL BLD GAS O2 SATURATION 94.3 % (92-100); ARTERIAL BLD GAS TCO2 CT 31.4; ARTERIAL BLOOD GAS BASE EXCESS 4.6 (-2-2); ARTERIAL BLOOD GAS PCO2 47.9 mmHg (35-45); ARTERIAL BLOOD GAS PO2 72.2 mmHg (80-100); ARTERIAL BLOOD GAS pH 7.41 (7.35-7.45)
[2021-06-11 06:18] LABS: HEMOGLOBIN 10.9 g/dl (13.5-18.0); MEAN CELL VOLUME 103 fl (80.0-100.0); MEAN CORPUSCULAR HEMOGLOBIN 32 pg (27-31); MEAN CORPUSCULAR HGB CONC 31 g/dl (33.0-37.0); MEAN PLATELET VOLUME 11.9 fl (7.4-10.4); PLATELET COUNT 213 K/mm3 (130-400); RED BLOOD COUNT 3.41 M/mm3 (4.20-5.60); REDCELL DISTRIBUTION WIDTH-CV 14.6 % (11.5-14.5)
[2021-06-11 06:36] LABS: HEMATOCRIT 35.1 % (42.0-52.0)
[2021-06-11 06:40] LABS: ALBUMIN 1.9 gm/dL (3.5-5.0); C-REACTIVE PROTEIN 14.65 mg/dL (0.00-0.50); CALCIUM 8.4 mg/dL (8.4-10.2); CREATININE, serum 0.6 mg/dL (0.72-1.25); POTASSIUM 3.8 mmol/L (3.5-4.5); TOTAL PROTEIN 5.7 gm/dL (6.2-8.1)
[2021-06-11 06:46] LABS: BAND 5 % (0-10); BASOPHIL 2 % (0-2); EOSINOPHIL 1 % (0-4); MYELOCYTE 1 % (0-0); NEUTROPHILS 78 % (42.0-75.2)
[2021-06-11 06:47] LABS: LYMPHOCYTE 9 % (20.0-51.0); PLATELET ESTIMATE NORMAL (NORMAL)
[2021-06-11 06:48] LABS: HYPOCHROMIA 2+
[2021-06-11] MEDS ORDERED: IPRATROPIUM BROM3 M1 IH (10:05)
[2021-06-11] MEDS ORDERED: LOVENOX 4040 MG/0.4 SQ (10:06)
[2021-06-11] MEDS ORDERED: TYLENOL 325MG325 MG PO (10:07)
[2021-06-11] MEDS ORDERED: NARCAN .4MG0.4 MG/ML IV (10:07)
[2021-06-11] MEDS ORDERED: SENNA-S 50 MG-81 TAB PO (10:08)
[2021-06-11] MEDS ORDERED: ZOFRAN INJ4 MG/2 ML IV (10:09)
[2021-06-11] MEDS ORDERED: ROMAZICON 00.1 MG/ML IV (10:11)
[2021-06-11] MEDS ORDERED: ATIVAN 2MG/ML2 MG/ML IV (10:11)
[2021-06-11] MEDS ORDERED: RT Albuterol HFA MDI IH (10:11)
--- NOTE | 2021-06-11 10:54 | NUR ---
Technical Solution Architect faxed clinical updates to Peyman at [facility] who advised based on patient's current vent settings, they will not be able to accept today. SW updated Hospitalist. SW also contacted patient's , Eun to provide update. Discharge Plan: [facility]
--- NOTE | 2021-06-11 11:07 | NUR ---
PATIENT SEEMS COMFORTABLE SO TRACH CARE WAS COMPLETED AT THIS TIME. MURPHY, TRACH TIE AND INNER CANNULA WAS ALSO CHANGED AT THIS TIME. PATIENT REMAINS ON SAME VENT SETTINGS AND SP02 REMAINS GREATER THAN 97%
--- NOTE | 2021-06-11 23:30 | NUR ---
PT HAS HAD TWO LARGE LIQUID STOOLS THIS SHIFT, FMS PLACED AT THIS TIME. BALLOON INFLATED TO 40ML.
[2021-06-12] VITALS (585 sets, daily range): BP systolic 101–122; BP diastolic 67–77; PULSE 76–107; TEMP 99.3–99.5; O2SAT 59–100
--- NOTE | 2021-06-12 02:52 | NUR ---
FROM 0200 PT HAS HAD VIOLENT COUGHING FIT. RT AND RN AT BEDSIDE. NONPRODUCTIVE COUGH, BREATHING IN THE HIGH 40'S-50'S, O2 SATURATION 88-90%. SEDATION MEDICATIONS TITRATED UP. CALL TO DR. OBREGON WITH [facility], STATES REALLY NO WAY TO SUPPRESS COUGH BESIDES NARCOTICS, JUST CONTINUE WITH FENTANYL TITRATIONS. VENT SETTINGS INCREASED TO FI02 OF 100%. WILL CONTINUE TO MONITOR.
[2021-06-12 05:14] LABS: ARTERIAL BLOOD GAS BASE EXCESS 5.1 (-2-2); ARTERIAL BLOOD GAS HCO3 29.6 meq/L (22-26); ARTERIAL BLOOD GAS PCO2 43.5 mmHg (35-45); ARTERIAL BLOOD GAS PO2 90.1 mmHg (80-100); ARTERIAL BLOOD GAS pH 7.45 (7.35-7.45)
[2021-06-12 05:22] LABS: HEMOGLOBIN 10.3 g/dl (13.5-18.0); MEAN CELL VOLUME 103 fl (80.0-100.0); MEAN CORPUSCULAR HEMOGLOBIN 32 pg (27-31); MEAN CORPUSCULAR HGB CONC 31 g/dl (33.0-37.0); MEAN PLATELET VOLUME 11.8 fl (7.4-10.4); PLATELET COUNT 210 K/mm3 (130-400); REDCELL DISTRIBUTION WIDTH-CV 14.5 % (11.5-14.5)
[2021-06-12 05:31] LABS: HEMATOCRIT 32.8 % (42.0-52.0)
[2021-06-12 05:37] LABS: ALBUMIN 1.8 gm/dL (3.5-5.0); BILIRUBIN,TOTAL 0.7 mg/dL (0.2-1.2); C-REACTIVE PROTEIN 14.21 mg/dL (0.00-0.50); CALCIUM 8.1 mg/dL (8.4-10.2); CREATININE, serum 0.59 mg/dL (0.72-1.25); POTASSIUM 3.8 mmol/L (3.5-4.5); TOTAL PROTEIN 5.3 gm/dL (6.2-8.1)
[2021-06-12 06:00] LABS: BAND 9 % (0-10); EOSINOPHIL 1 % (0-4); LYMPHOCYTE 9 % (20.0-51.0); NEUTROPHILS 75 % (42.0-75.2)
[2021-06-12 06:02] LABS: PLATELET ESTIMATE NORMAL (NORMAL)
--- NOTE | 2021-06-12 07:45 | NUR ---
Received bedside report from JOHANA Hernández. Patient noted to have leaked stool around rectal tube after episode of forcefull coughing. Jamee-care provided and repositioned at this time. Patient's eyes are open and arms are observed lifting upwards on restraints, however, patient does not follow commands.
--- NOTE | 2021-06-12 12:00 | NUR ---
Provided a bedbath and susan-care. Patient coughed forcefully with rapid respirations during cares. Cares are clustered as this is per patient usual with most physicial stimulation.
--- NOTE | 2021-06-12 12:47 | NUR ---
Transfered from unit via EMS to [facility]. Patient coughed forcefully and desaturated initially upon tranfer to EMS [facility], however, 02 saturations eventually returned to baseline. Patient had a black duffel bag which was sent with EMS.
--- NOTE | 2021-06-12 13:15 | NUR ---
Report called to to JOHANA Tavares from [facility].
--- NOTE | 2021-06-12 14:15 | NUR ---
Capsule Maker was contacted by Peyman at [facility] who advised he spoke with patient's RN and patient is now stable enough for transport. Peyman requested crab picker time of around noon. CITLALY contacted [facility] and set transport time for noon. CITLALY placed completed and signed EMS forms on patient's chart. CITLALY contacted patient's , Eun and provided her with transport time. Eun is agreeable with patient discharging to the [facility] today. CITLALY provided report number to patient's RN, then CITLALY student faxed discharge orders to Peyman at [facility]. Peyman contacted CITLALY and advised accepting physician, Dr. Hadley would like a dr to dr cyr. CITLALY contacted Hospitalist and provided Dr. Hadley's contact information. Discharge Plan: [facility]
--- NOTE | 2021-06-12 14:18 | NUR ---
Billet Cutter was notified by Hospitalist that [facility] called and advised patient's oxygen levels dropped. Hospitalist advised patient will be taken to the nearest hospital, [facility]. SW contacted [facility] and confirmed the above information. CITLALY provided patient's 's contact information to Aron at [facility] who will contact and provide update. CITLALY notified Peyman at [facility] of the above information.
== END 2021-06-12 12:45 | DRG 4 ==
LOC: COL.ER 21:45 → ICU 05-12 00:36 → MEDICAL 05-12 00:36 → ICU 05-18 10:43 → MEDICAL 05-20 19:00 → ICU 05-21 12:41
PROVIDERS: Internal Medicine; Internal Medicine Pulmonary Disease; Internal Medicine Sleep Medicine; Nurse Practitioner Family; Physician Assistant; ADMIT Internal Medicine
PROC: XW033E5 Introduction of Remdesivir Anti-infective into Peripheral Vein, Percutaneous Approach, New Technology Group 5 (ICD-10-PCS; 2021-05-12)
PROC: 3E0DX3Z Introduction of Anti-inflammatory into Mouth and Pharynx, External Approach (ICD-10-PCS; 2021-05-12)
PROC: 02HV33Z Insertion of Infusion Device into Superior Vena Cava, Percutaneous Approach (ICD-10-PCS; 2021-05-17)
PROC: 5A09457 Assistance with Respiratory Ventilation, 24-96 Consecutive Hours, Continuous Positive Airway Pressure (ICD-10-PCS; 2021-05-21)
PROC: 5A1955Z Respiratory Ventilation, Greater than 96 Consecutive Hours (ICD-10-PCS; principal; 2021-05-25)
PROC: 0BH17EZ Insertion of Endotracheal Airway into Trachea, Via Natural or Artificial Opening (ICD-10-PCS; 2021-05-25)
PROC: 0B110F4 Bypass Trachea to Cutaneous with Tracheostomy Device, Open Approach (ICD-10-PCS; 2021-06-05)
PROC: 0DH68UZ Insertion of Feeding Device into Stomach, Via Natural or Artificial Opening Endoscopic (ICD-10-PCS; 2021-06-05)
DX: U07.1 COVID-19 (principal); J96.01 Acute respiratory failure with hypoxia; J12.82 Pneumonia due to coronavirus disease 2019; E87.1 Hypo-osmolality and hyponatremia; T79.7XXA Traumatic subcutaneous emphysema, initial encounter; T68.XXXA Hypothermia, initial encounter; I48.91 Unspecified atrial fibrillation; I08.1 Rheumatic disorders of both mitral and tricuspid valves; D69.6 Thrombocytopenia, unspecified; D72.829 Elevated white blood cell count, unspecified; E87.6 Hypokalemia; G89.29 Other chronic pain; M54.50 Low back pain, unspecified; K59.00 Constipation, unspecified
CPT/HCPCS: 99222-AI; 99231-AI; 99232-AI; 99233-AI; 99239; A4314; A7521; C1751; C9113; J0248; J0692; J0696; J1100; J1650; J1815; J1885; J1940; J2060; J2212; J2250; J2405; J2543; J2704; J3010; J3370; J3480; J7030; J7050; J8540; Q0249; Q9967

== ENCOUNTER 2021-08-03 09:53 | Inpatient (IN) | payer BC ==
[~2021-08-03] VITALS: Ht 175.3 cm; Wt 92.8 kg
[~2021-08-03 09:53] MED LIST: ATIVAN 2MG/ML2 MG/ML IV; IPRATROPIUM BROM3 M1 IH; LOVENOX 4040 MG/0.4 SQ; NARCAN .4MG0.4 MG/ML IV; ROMAZICON 00.1 MG/ML IV; RT Albuterol HFA MDI IH; SENNA-S 50 MG-81 TAB PO; TYLENOL 325MG325 MG PO; ZOFRAN INJ4 MG/2 ML IV
[2021-08-03] MEDS ORDERED: MELATIN 3 MG-11 TAB PO (12:15)
[2021-08-03] MEDS ORDERED: PREDNISONE10 MG PO (12:16)
[2021-08-03] MEDS ORDERED: RISPERDAL 0.20.25 MG PO (12:17)
[2021-08-03] MEDS ORDERED: VALIUM 5MG T5 MG/TAB PO (12:17)
[2021-08-03] MEDS ORDERED: ELIQUIS 5MG PO (12:18)
[2021-08-03] MEDS ORDERED: MIRALAX PA17 GM/Dose PO (12:18)
[2021-08-03] MEDS ORDERED: PROSCAR 5MG5 MG PO (12:19)
[2021-08-03] MEDS ORDERED: FLONASEALLERGY INH (14:47)
[2021-08-03] MEDS ORDERED: PROTONIX 40MG T40 MG PO (14:55)
[2021-08-03] MEDS ORDERED: TYLENOL 325MG325 MG PO (14:57)
[2021-08-03] MEDS ORDERED: IPRATROPIUM-ALBUTERO INH (14:59)
--- NOTE | 2021-08-03 15:00 | NUR ---
Pt. arrived to unit via transportation bus from [facility]. Pt. is alert & oriented x 4. He is on room air. Denies pain. Denies shortness of air or difficulty breathing. Admission intake and physical assessment completed. Orientation provided to room, call light, visitor policy. Pt. has no questions at this time. Call light is within his reach
[2021-08-03 15:55] VITALS: BP 134/81; PULSE 107; TEMP 98.2
[2021-08-03 17:49] VITALS: BP 134/81; PULSE 107; TEMP 98.2
[2021-08-04 05:19] VITALS: BP 107/71; PULSE 91; TEMP 97.5
--- NOTE | 2021-08-04 06:37 | NUR ---
ASSUMED CARE OF PATIENT AFTER RECEIVING BEDSIDE REPORT. PATIENT REPORTS FEELING VERY ANXIOUS ABOUT HOSPITAL STAY. PATIENT DENIES PAIN. PATIENT REPORTS FEELING VERY TIRED AT HS. VSS. BEDSIDE REPORT TO BE GIVEN TO ONCOMING SHIFT.
--- NOTE | 2021-08-04 07:00 | NUR ---
Bedside shift report received, assumed care for day shift.
--- NOTE | 2021-08-04 08:15 | NUR ---
Patient with therapy at this time. Will do assessment when returns and available.
--- NOTE | 2021-08-04 11:30 | NUR ---
Assessment complete. A&Ox3. Denies pain/nausea/shortness of breath. VS remain stable. Participated in therapy this AM. States he is just "a little sore from that." Has tolerated diet well. Voiding without difficulty. Denies quesitons/concerns. Plan of care discussed for this shift to include meds/calling for needs. Verbalizes understanding. Call light in reach. Will monitor.
--- NOTE | 2021-08-04 13:47 | NUR ---
stopped by but nothing needed at this time.
--- NOTE | 2021-08-04 17:18 | NUR ---
Patient had an uneventful night. Participated in therapy as scheduled. Denied pain/nausea/shortness of breath. VS remained stable. 1-2 assist with walker. +BM. Denies current needs. Call light in reach. Will monitor.
[2021-08-04 17:39] VITALS: BP 114/75; PULSE 105; TEMP 98.3
--- NOTE | 2021-08-04 19:04 | NUR ---
RECEIVED CHANGE OF SHIFT REPORT FROM DAY SHIFT RN. FAMILY AT BEDSIDE. CALL LIGHT WITHIN REACH. EXIT ALARM ON WHEN IN BED WITH CALL LIGHT WITHIN REACH.
--- NOTE | 2021-08-04 22:36 | NUR ---
OBSERVED PATIENT WITH TREMORS WITH BUE/BLE AROM D/T FATIGUE, DENIES NUMBNESS/TINGLING/LOSS OF B HAND GREENHOUSE MANAGER. HAND GREENHOUSE MANAGER EQUAL BUT WEAK.
--- NOTE | 2021-08-04 23:50 | NUR ---
PATIENT SLEEPING, EXIT ALARM ON WHILE IN BED. CALL LIGHT WITHIN REACH. DOES NOT WAKE WHEN NURSING STAFF ENTER ROOM ON ROUNDS. BREATHING NONLABORED AND EVEN.
[2021-08-05 05:04] VITALS: BP 103/65; PULSE 84; TEMP 97.4
--- NOTE | 2021-08-05 06:46 | NUR ---
CHANGE OF SHIFT REPORT GIVEN TO DAY SHIFT RNNICOLE.
--- NOTE | 2021-08-05 07:00 | NUR ---
Bedside shift report received, assumed care for day shift.
--- NOTE | 2021-08-05 08:56 | NUR ---
Assessment complete. A&Ox3. Denies pain/nausea/shortness of breath. States he is still worn out from PT yesterday. VS have been stable. Assisted to bathroom-stand by assist with walker/gait belt. Tolerated well. Noted to have a aquacell to old peg tub site for comfort. Plan of care discussed for this shift to include meds/calling for questions or concerns. Verbalizes understanding. Up in chair at this time. Will monitor.
--- NOTE | 2021-08-05 10:19 | NUR ---
SItting up in chair watching TV/listening to music. Denies needs. Call light in reach. Will monitor.
--- NOTE | 2021-08-05 15:11 | NUR ---
Up to bathroom at this [id number] assist/gait belt/walker. Tolerated well. Had large loose stool.
--- NOTE | 2021-08-05 16:59 | NUR ---
Patient had an uneventful day. Was up in chair most of day. Stand by assist with walker/gait belt. Denied pain/nausea/shortness of breath. VS remained stable. Tolerating diet. Denies current needs. Call light in reach. Will monitor.
[2021-08-05 17:57] VITALS: BP 112/62; PULSE 91; TEMP 98.1
--- NOTE | 2021-08-05 18:58 | NUR ---
RECEIVED CHANGE OF SHIFT REPORT FROM DAY SHIFT RN. PATIENT RESTING IN BED WITH EXIT ALARM AND CALL LIGHT WITHIN REACH. PATIENT TALKING ON CELL PHONE, NO INDICATIONS OF ANY NEEDS OR CONCERNS AT THIS TIME.
--- NOTE | 2021-08-06 02:43 | NUR ---
PATIENT SLEEPING, BREATHING NONLABORED AND EVEN. DOES NOT WAKE WHEN NURSING ENTER ROOM ON ROUNDS. EXIT ALARM ON WITH CALL LIGHT WITHIN REACH.
[2021-08-06 05:06] VITALS: BP 121/80; PULSE 76; TEMP 97.6
[2021-08-06 06:33] LABS: HEMATOCRIT 37.5 % (42.0-52.0); HEMOGLOBIN 12.4 g/dl (13.5-18.0); MEAN CELL VOLUME 96 fl (80.0-100.0); MEAN CORPUSCULAR HEMOGLOBIN 32 pg (27-31); MEAN CORPUSCULAR HGB CONC 33 g/dl (33.0-37.0); PLATELET COUNT 297 K/mm3 (130-400); REDCELL DISTRIBUTION WIDTH-CV 15.7 % (11.5-14.5)
[2021-08-06 06:55] LABS: CALCIUM 8.4 mg/dL (8.4-10.2); CREATININE, serum 0.6 mg/dL (0.72-1.25); MAGNESIUM 2.1 mg/dL (1.6-2.6); POTASSIUM 3.3 mmol/L (3.5-4.5)
--- NOTE | 2021-08-06 07:09 | NUR ---
CHANGE OF SHIFT REPORT GIVEN TO DAY SHIFT RNGRZEGORZ.
--- NOTE | 2021-08-06 07:12 | NUR ---
Shift report received from fast food shift lead RN. Pt. is resting supine in bed. Call light is within his reach
[2021-08-06 08:21] LABS: BAND 1 % (0-10); EOSINOPHIL 1 % (0-4); LYMPHOCYTE 23 % (20.0-51.0); NEUTROPHILS 68 % (42.0-75.2); OVALOCYTES 1+; PLATELET ESTIMATE NORMAL (NORMAL)
--- NOTE | 2021-08-06 09:18 | NUR ---
Pt. sitting up in recliner. Denies pain. Denies shortness of air or difficulty breathing. Remains on room air. Denies any further needs at this time. Call light is within his reach
--- NOTE | 2021-08-06 10:22 | NUR ---
Initial visit; Patient thanked Business Development Director for looking in on him and offering God's blessings and keeping him in Business Development Director's prayers.
--- NOTE | 2021-08-06 14:37 | NUR ---
Pt. shaved this morning with PT using an electric razor. Skin irritation noted to lower neck. Skin is red. Intact. Discussed with pt. applying moisturizing lotion prn. Will monitor for improvement
--- NOTE | 2021-08-06 15:31 | NUR ---
Milk Driver met with patient to complete initial intake as he is new to [facility]. Patient lives in [place] with his , Eun (ph#[phone]) and sees Dr. Collins for primary care. Patient obtains medications from [facility] with no difficulties and normally does not use any DME. Patient has a walker at home from his 's knee surgery but hopes he will not need it. Patient is normally independent with ADLS and is employed by [employer]. Patient does not have Advance Directives and is not interested in setting up DPOA- at this time. SW scheduled family meeting for Friday at 1015 with patient's , Eun who was on speakerphone during intake.
[2021-08-06 18:00] VITALS: BP 109/69; PULSE 108; TEMP 98.1
--- NOTE | 2021-08-06 19:10 | NUR ---
RECEIVED CHANGE OF SHIFT REPORT FROM DAY SHIFT RN. CALL LIGHT WITHIN REACH. RESTING IN BED WITH EXIT ALARM ON. NO NEEDS REPORTED AT TIME OF REPORT.
[2021-08-07 05:24] VITALS: BP 111/72; PULSE 83; TEMP 98.2
--- NOTE | 2021-08-07 07:07 | NUR ---
CHANGE OF SHIFT REPORT GIVEN TO DAY SHIFT RNGRZEGORZ.
--- NOTE | 2021-08-07 07:12 | NUR ---
Shift report received from tumble tailstock turret lathe operator RN. Pt. awake in bed. Denies pain or discomfort. Denies further needs. Call light is within his reach
--- NOTE | 2021-08-07 13:10 | NUR ---
Admission QIM scores were reviewed by the team. Code of 3 chosen for toilet hygiene was determined by team discussion to be the most usual performance for this patient during the assessment period. Code of 88 chosen for toileting transfers was determined by team discussion to be the most usual performance for this patient during the assessment period. Code of 4 chosen for rolling left to right was determined by team discussion to be the most usual performance before interventions for this patient during the assessment period. Code of 4 chosen for sit to lying was determined by team discussion to be the most usual performance before interventions for this patient during the assessment period. Code of 4 chosen for lying to sitting on side of bed was determined by team discussion to be the most usual performance for this patient during the assessment period. Code of 3 for sit to stand was determined by team discussion to be the most usual performance for this patient during the assessment period. Code of 3 for chair/bed to chair transfers was determined by team discussion to be the most usual performance for this patient during the assessment period. Code of 2 chosen for walk 10 feet was determined by team discussion to be the most usual performance for this patient during the assessment period.--Maryjane Valdivia,
--- NOTE | 2021-08-07 16:15 | NUR ---
Pt sitting in recliner in room. He denies pain or discomfort. Denies shortness of breath or trouble breathing. He denies further needs at this time. Call light is within his reach
[2021-08-07 17:46] VITALS: BP 116/72; PULSE 103; TEMP 98.5
--- NOTE | 2021-08-08 01:11 | NUR ---
PATIENT ALERT AND ORIENTED. AMBULATED WITH STANDBY ASSIST AND USE OF WALKER TO RESTROOM THROUGHOUT NIGHT NEEDED. MEDS ADMINISTERED PER EMAR. DENIES PAIN. CALL LIGHT IN REACH.
[2021-08-08 05:18] VITALS: BP 110/70; PULSE 78; TEMP 97.8
--- NOTE | 2021-08-08 14:53 | NUR ---
Card Player attended patient family conference which included patient's and daughter who are at bedside. MARII Wesley Director opened the meeting by explaining it's purpose then Dr. Lagunas reviewed patient's medical status. PT/OT/ST reviewed patient's progress and recommendation will be for outpatient PT and OT. Discharge date was discussed and two options were presented. Patient could potentially discharge on Friday with the understanding he would need to use a front wheeled walker or he could stay in to next week to continue to work towards graduating to a cane. Patient states he will discuss this with family and follow up with the team. SW followed up with patient later and provided a copy of team conference notes. Patient to have another discussion with his this afternoon after her dentist appointment then plans to follow up with the team on his choice.
--- NOTE | 2021-08-08 16:36 | NUR ---
PT SITTING IN RECLINER, HAS BEEN ON HIS PHONE MUCH OF AFTERNOON AFTER WORKING WITH THERAPY. PT IS PLEASANT, DENIES NEEDS OR PAIN. RESPIRATIONS UNLABORED. CALL LIGHT WITHIN REACH.
[2021-08-08 17:33] VITALS: BP 107/73; PULSE 105; TEMP 97.3
--- NOTE | 2021-08-08 18:45 | NUR ---
PT NOTIFIES STAFF THAT HE DID DECIDE THAT HE WILL NOT DISCHARGE FRIDAY BUT WILL PLAN TO GO HOME NEXT WEEK INSTEAD. PASSED ONTO NIGHT NURSE DURING SHIFT REPORT.
--- NOTE | 2021-08-09 00:43 | NUR ---
PATIENT ALERT AND ORIENTED. HS MEDICATIONS ADMINISTERED PER EMAR. STANDBY ASSIST TO BATHROOM WITH WALKER THROUGHOUT NIGHT. DENIES PAIN. WAS ON THE PHONE WITH HIS SOME THIS EVENING.
[2021-08-09 05:28] VITALS: BP 117/73; PULSE 85; TEMP 97.9
--- NOTE | 2021-08-09 13:43 | NUR ---
PT RESTING IN RECLINER CHAIR, HAS BEEN ASSISTED WITH SBA TO BR ET BACK, HAS HAD A BM. PT'S FAMILY WAS HERE VISITING EARLIER. PT'S ICE WATER IS REFILLED. DENIES OTHER NEEDS. CHAIR ALARM IS ON. CALL LIGHT WITHIN REACH.
[2021-08-09 17:29] VITALS: BP 104/66; PULSE 103; TEMP 98.4
--- NOTE | 2021-08-09 21:00 | NUR ---
PT ASSISTED TO BR-SBA. THEN TO BED. PT READY FOR PM MEDS. NO RESP DISTRESS. OCCASIONAL DRY NONPRODUCTIVE COUGH. CALL LIGHT IN REACH. BED ALARM SET.
[2021-08-10 05:49] VITALS: BP 109/59; PULSE 91; TEMP 98
--- NOTE | 2021-08-10 14:19 | NUR ---
Automotive Product Engineer checked in with patient before the weekend and he advised he has no conerns or questions at this time. Tentative discharge date set for Friday.
[2021-08-10 17:25] VITALS: BP 107/65; PULSE 106; TEMP 99.2
--- NOTE | 2021-08-10 17:48 | NUR ---
PT DOING WELL TODAY, HAD A HAIRCUT WITH THERAPY THIS MORNING ET FAMILY HAS BEEN HERE TO VISIT. PT HAS BEEN UP INDEPENDENTLY IN HIS ROOM. PT DENIES ACTUAL PAIN BUT STATES THAT HE HAS USUAL MUSCLE "SORENESS" IN HIS LEGS THAT HE GETS AFTER THERAPY. PT DENIES NEEDS, HAS BEEN SITTING IN CHAIR IN THE NILE WINDOW. RESPIRATIONS UNLABORED. CALL LIGHT WITHIN REACH.
--- NOTE | 2021-08-10 20:30 | NUR ---
PT RESTING IN BED. MOD I IN ROOM WITH CANE. PT UNDERSTANDS OK TO AM IN IPR HALLWAY BUT WITH WALKER. NO NEEDS AT THIS TIME.
[2021-08-11 05:20] VITALS: BP 106/66; PULSE 89; TEMP 98.5
--- NOTE | 2021-08-11 07:16 | NUR ---
Shift report received from veterinary hospital shift lead RN. Pt. awake and has returned to bed from bathroom. He denies pain or discomfort. Denies further needs at this time. Call light is within his reach
[2021-08-11 09:40] LABS: CALCIUM 8.5 mg/dL (8.4-10.2); CREATININE, serum 0.61 mg/dL (0.72-1.25); POTASSIUM 3.4 mmol/L (3.5-4.5)
--- NOTE | 2021-08-11 10:49 | NUR ---
Pt. in room, sitting in his recliner. He has just returned from group therapy. He denies any pain or discomfort. Call light is within his reach. No further needs at this time
--- NOTE | 2021-08-11 14:11 | NUR ---
Pt in recliner in room. Denies pain or discomfort. Pt. is visiting with a visitor in his room. Denies further needs at this time. Call light is within his reach
[2021-08-11 16:45] VITALS: BP 106/57; PULSE 96; TEMP 98
[2021-08-11 16:46] VITALS: BP 106/57; PULSE 96; TEMP 98
--- NOTE | 2021-08-11 19:18 | NUR ---
FAMILY HERE VISITING. NO NEEDS AT THIS TIME.
[2021-08-12 05:42] VITALS: BP 119/75; PULSE 91; TEMP 98.4
--- NOTE | 2021-08-12 06:50 | NUR ---
SHIFT REPORT RECEIVED FROM FIELD APPLICATION ENGINEER RN. PT. IS SLEEPING IN BED, SUPINE. CALL LIGHT IS WITHIN HIS REACH
--- NOTE | 2021-08-12 08:50 | NUR ---
Pt sitting up in bed. Has just completed breakfast. He denies pain or discomfort. He denies further needs at this time. Call light is within his reach
[2021-08-12 16:56] VITALS: BP 116/76; TEMP 97.6
--- NOTE | 2021-08-12 19:39 | NUR ---
PT RESTING IN BED. MOD I IN ROOM. NO NEEDS AT THIS TIME. ENC TO CALL IF NEEDED FOR ASSISTANCE.
[2021-08-13 05:42] VITALS: BP 110/66; PULSE 83; TEMP 97.6
--- NOTE | 2021-08-13 05:58 | NUR ---
PT HAS SLEPT THROUGH THE NIGHT. NO COMPLAINTS VERBALIZED.
--- NOTE | 2021-08-13 08:45 | NUR ---
Assessment completed, alert/oriented, vital signs stable, denies pain, he has had had breakfast and morning medications, he is Mod-I in his room and getting around with a cane, heart RRR, lungS CTA, potassium was replaced yesterday, he is up in the chair and denies other needs at this time
--- NOTE | 2021-08-13 15:15 | NUR ---
Embedded Developer met with patient to follow up from the weekend and discuss outpatient PT/OT. SW reviewed outpatient therapy options with patient who would like to be set up with outpatient therapy at [facility] [address].
[2021-08-13 17:21] VITALS: BP 120/85; PULSE 98; TEMP 98.8
--- NOTE | 2021-08-14 00:51 | NUR ---
PATIENT ALERT AND ORIENTED. MOD I IN ROOM AND IN RIVERA WITH CANE. HS MEDS GIVEN. DENIES PAIN OR OTHER NEEDS. CALL LIGHT IN REACH.
[2021-08-14 05:39] VITALS: BP 108/67; PULSE 84; TEMP 98.1
--- NOTE | 2021-08-14 07:30 | NUR ---
Patient sitting up in bed eating breakfast. A&Ox3. VSS. Denies pain and discomfort. Indenpendent in the room and with feeds. Call light within reach
[2021-08-14 17:22] VITALS: BP 112/70; PULSE 99
--- NOTE | 2021-08-14 17:34 | NUR ---
Patient sitting up in the recliner, A&Ox3. VSS. Denies pain and discomfort. Independent in the room and with feeds. Call light within reach
[2021-08-14 18:06] VITALS: TEMP 98.1
--- NOTE | 2021-08-15 00:52 | NUR ---
PATIENT IN BED. A&O X4. DENIES PAIN. HS MEDS PER EMAR. IS MOD I IN ROOM AND RIVERA. PLAN TO DC HOME TOMORROW.
[2021-08-15 05:28] VITALS: BP 100/66; PULSE 87; TEMP 98.2
--- NOTE | 2021-08-15 07:16 | NUR ---
SHIFT REPORT RECEIVED FROM NURSING SUPPORT WORKER RN. PT. SLEEPING IN BED. CALL LIGHT IS WITHIN HIS REACH
[2021-08-15] MEDS ORDERED: RISPERDAL 0.5M0.5 MG PO (08:38)
[2021-08-15] MEDS ORDERED: PROTONIX 40MG T40 MG PO (08:39)
[2021-08-15] MEDS ORDERED: VALIUM 5MG T5 MG/TAB PO (08:40)
--- NOTE | 2021-08-15 11:04 | NUR ---
Clerk Travel Reservations contacted [facility] on [address] and made patient's first appointments. 08/20/21 OT @ 0900 and 08/27/21 PT @ 4620. SW provided appointments to RN to include in discharge instructions. CITLALY faxed referral and orders to [facility] on [address]. Patient to discharge today.
--- NOTE | 2021-08-15 12:53 | NUR ---
Pt. discharged home at 1156. Health Summary, Home Medications, and Discharge Summary reviewed with pt. and his daughters. Personal belonging were gathered by the pt. and his daughter. Discussed follow-up appointments. They had no further questions. Pt. escorted off unit via wheelchair and seatbelted for ride home
== END 2021-08-15 11:56 | disposition home or self-care (01) | DRG 91 ==
PROVIDERS: Internal Medicine; Physician Assistant; ADMIT Physical Medicine & Rehabilitation Sports Medicine
DX: G72.81 Critical illness myopathy (principal); J96.01 Acute respiratory failure with hypoxia; U07.1 COVID-19; J12.82 Pneumonia due to coronavirus disease 2019; I48.0 Paroxysmal atrial fibrillation; R13.12 Dysphagia, oropharyngeal phase; R26.89 Other abnormalities of gait and mobility; R20.2 Paresthesia of skin; J84.10 Pulmonary fibrosis, unspecified; F43.22 Adjustment disorder with anxiety; E87.6 Hypokalemia; R33.9 Retention of urine, unspecified; G47.00 Insomnia, unspecified; G89.29 Other chronic pain; Z79.52 Long term (current) use of systemic steroids; Z73.6 Limitation of activities due to disability; Z79.899 Other long term (current) drug therapy; Z87.891 Personal history of nicotine dependence; Z79.01 Long term (current) use of anticoagulants; M54.16 Radiculopathy, lumbar region; R07.89 Other chest pain
CPT/HCPCS: 99222; 99231-AI; 99232-AI; J7512

== ENCOUNTER 2021-08-24 09:45 | Outpatient (RCR) | payer BC ==
[~2021-08-24 09:45] MED LIST changes: +ELIQUIS 5MG PO; +FLONASEALLERGY INH; +IPRATROPIUM-ALBUTERO INH; +MELATIN 3 MG-11 TAB PO; +MIRALAX PA17 GM/Dose PO; +PREDNISONE10 MG PO; +PROSCAR 5MG5 MG PO; +PROTONIX 40MG T40 MG PO; +RISPERDAL 0.20.25 MG PO; +RISPERDAL 0.5M0.5 MG PO; +VALIUM 5MG T5 MG/TAB PO
== END 2021-08-25 | disposition home or self-care (01) ==
LOC: WSOT
DX: G72.81 Critical illness myopathy (principal); J12.82 Pneumonia due to coronavirus disease 2019

== ENCOUNTER 2021-09-19 13:00 | Outpatient (RCR) | payer BC | END 2021-09-25 | disposition home or self-care (01) | LOC: WSOT | DX: R53.1 Weakness (principal); R68.89 Other general symptoms and signs; Z86.16 Personal history of COVID-19 ==

== ENCOUNTER 2021-09-21 14:15 | Outpatient (RCR) | payer BC | END 2021-09-25 | disposition home or self-care (01) | LOC: WSPT | DX: G72.81 Critical illness myopathy (principal); U09.9 Post COVID-19 condition, unspecified ==

== ENCOUNTER 2021-10-01 15:00 | Outpatient (RCR) | payer BC | END 2021-10-25 | disposition still patient (30) | LOC: WSOT | DX: G72.9 Myopathy, unspecified (principal) ==

== ENCOUNTER 2021-10-22 10:30 | Outpatient (RCR) | payer BC | END 2021-10-25 | LOC: WSPT | DX: G72.81 Critical illness myopathy (principal) ==

== ENCOUNTER 2021-10-26 09:19 | Outpatient (RCR) | payer BC | END 2021-11-13 09:17 | disposition home or self-care (01) | LOC: WSPT 09:19 | DX: G72.9 Myopathy, unspecified (principal) ==

== ENCOUNTER 2023-01-08 08:15 | Outpatient (RCR) | payer BC | END 2023-01-25 | disposition home or self-care (01) | LOC: WSPT | DX: M54.10 Radiculopathy, site unspecified (principal); M54.50 Low back pain, unspecified ==